=== PATIENT | male | born 1955 | race Caucasian/White ===

== ENCOUNTER 2023-02-15 12:57 | Observation (INO) ==
--- NOTE | 2023-02-15 13:14 | ED Triage Note ---
Date of Service February 15, 2023 Provider in Triage Author: Yana Nguyen History of Present Illness This patient was briefly evaluated while in triage. An abbreviated physical exam was performed. This patient is a 67-year-old Male who presents to the ED for evaluation of fever, rash, swelling to ankles. Recent UTI treated with Bactrim in January. Cleared symptoms but returned on Wednesday. Second round of Bactrim currently with 3 doses. Devleoped Fever/chills, rash on thighs, and lower leg swelling this morning prompting evaluation. Denies chest pain, SOB. Physical Exam Constitutional: alert and oriented x3. no acute distress. HEENT: normocephalic, atraumatic. normal conjunctiva.PERRLA. EOM's grossly intact. Respiratory: lungs are clear to auscultation without wheezes, rhonchi, or rales bilaterally. equal chest rise. normal respiratory effort, no accessory muscle use. Cardiovascular: normal heart sounds without murmur. regular rate and rhythm. GI: abdomen is soft, nontender. No palpable masses. No rebound tenderness or guarding. MSK: moves all 4 extremities spontaneously Psych:appropriate mood and affect. Initial orders for labs and / or imaging were placed and patient was placed in the waiting area until a bed is available. Please see further documentation for the full ED course.
--- NOTE | 2023-02-15 15:34 | XRay Report ---
XR chest 1V not portable HISTORY: fever COMPARISON: Chest 08/03/2013. Chest 06/05/2011. FINDINGS: No pneumothorax. No pleural effusions. No focal lung consolidations to suggest a pneumonia. No evidence for pulmonary edema. The cardiac silhouette is normal in size. Calcified plaque within t he aortic knob. No acute fractures identified. There are degenerative changes noted within the left s [place]. Surgical clips seen within the right neck. Bilateral hilar prominence, unchanged. Stable 6 m m nodular density within the left midlung zone. Therefore, this is likely benign. IMPRESSION: No significant change compared to the prior study. No acute process. ACT 112: Negative or not required by law. Electronically signed by: Jonas Dillon M.D. 02/15/2023 3:33 PM
[2023-02-15 16:17] LABS: Basophils # (auto) 0.03 K/uL (0.00-0.20); Basophils % (auto) 0.2 %; Eosinophils % (auto) 0.7 %; Hematocrit (blood only) 30.4 % (42.0-52.0); Hemoglobin 10.5 g/dl (14.0-18.0); Immature Granulocytes # (auto) 0.06 K/uL (0.01-0.20); Immature Granulocytes % (auto) 0.4 %; Lymphocytes # (auto) 1.44 K/uL (1.20-3.40); Lymphocytes % (auto) 9.9 %; Mean Corpuscular Hgb Conc 34.5 g/dL (32.0-36.0); Mean Corpuscular Volume 92.7 fL (80.0-100.0); Mean Platelet Volume 9.3 fL (9.4-12.4); Monocytes # (auto) 1.04 K/uL (0.11-0.59); Monocytes % (auto) 7.2 %; Neutrophils # (auto) 11.87 K/uL (1.40-6.50); Neutrophils % (auto) 81.6 %; Platelet Count 258 K/uL (130-400); RDW Coefficient of Variation 13.9 % (11.5-14.5); RDW Standard Deviation 47.3 fL (36.4-46.3); Red Blood Count 3.28 M/uL (4.70-6.10); White Blood Count 14.54 K/ul (4.8-10.8)
[2023-02-15 16:23] LABS: Appearance Urine Turbid (Clear); Bacteria Urine Automated Negative (Negative); Bilirubin Urine Negative (Negative); Blood Urine 2+ (Negative); Color Urine Yellow; Epithelial Cell Urine Auto 0-5 /lpf (0-5); Glucose Urine UA Negative (Negative); Ketones Urine Negative (Negative); Leukocyte Esterase Urine 3+ (Negative); Nitrite Urine Negative (Negative); Protein Urine 1+ (Negative); RBC Urine Automated 0-4 /hpf (0-4); Specific Gravity Urine 1.013 (1.000-1.030); Urobilinogen Urine Negative (Negative); WBC Urine Automated >30 /hpf (0-5)
[2023-02-15 16:36] LABS: Albumin Globulin Ratio 1.2 (0.9-2); BUN Creatinine Ratio 15.1 (10-20); Bilirubin,Total 0.4 mg/dl (0.2-1.0); Calcium 8.9 mg/dl (8.6-10.3); Creatinine Clr Calc Pharmacy 76.4 ml/min; Est GFR (Non-African American) 89.7 ml/min; Globulin 3.4 gm/dl (2.5-4.0); Potassium 4.1 mmol/L (3.5-5.1); Total Protein 7.4 gm/dl (6.0-8.3)
[2023-02-15] MEDS ORDERED: SODIUM CHLORIDE 0.9% 500 ML IV ONE (18:26)
[2023-02-15] MEDS ORDERED: ACETAMINOPHEN 1,000 MG/100 ML VIAL IV STA (18:26)
[2023-02-15] MEDS ORDERED: cefTRIAXone SODIUM 2,000 MG/50 ML BAG IV STA (18:26)
--- NOTE | 2023-02-15 18:54 | Emergency Department Note ---
History of Present Illness General Chief complaint: Urinary Symptoms Stated complaint: FEVER, SHAKES, EDEMA TO ANKLES, UNABLE TO VOID,UTI Time Seen by Provider: 02/15/23 18:25 History of Present Illness 67-year-old male who presents to the emergency department accompanied by for evaluation of fever, ankle swelling and rash. Patient states in December he had a carotid endarterectomy. He developed postoperative urinary retention and had a Nails placed for 8 days. This was removed by urology. He states in middle of January he developed urinary tract infection with hematuria, frequency and dysuria. He was placed on a 10-day course of Bactrim which cleared his symptoms. He was seen by his PCP this past Wednesday and urinalysis was performed and negative for infection. Patient states that yesterday however he then developed urinary frequency and burning again. His PCP called him and another prescription of Bactrim and has taken 3 doses so far. Last night he developed fever/chills. He notes getting out of the shower this morning a rash on his bilateral thighs and swelling in his ankles. He denies chest pain, shortness of breath, abdominal pain, flank pain. Denies blood in urine or stool. No melena. Denies history of CHF. The only other change in his medications was a probiotic that he took yesterday. He denies any difficulty breathing or tongue/lip swelling. His rash is nonpainful or itchy. Denies blistering. He denies developing a rash through his first course of Bactrim. No known allergies. Home Medications Medication Instructions Recorded Confirmed Type multivitamin 1 tab PO QAM 12/22/18 02/18/23 History aspirin 81 mg tablet,delayed 81 mg PO DAILY #30 tabs 08/13/22 02/18/23 Rx release (Adult Low Dose Aspirin) atorvastatin 40 mg tablet 40 mg PO DAILY #30 tabs 08/13/22 02/18/23 Rx amlodipine 5 mg-olmesartan 20 mg 1 tab PO DAILY #90 tabs 01/14/23 02/18/23 Rx tablet ascorbic acid (vitamin C) 1,000 mg 1 g PO DAILY 01/14/23 02/18/23 History capsule cholecalciferol (vitamin D3) 25 25 mcg PO DAILY 01/14/23 02/18/23 History mcg (1,000 unit) capsule cefdinir 300 mg capsule 300 mg PO BID 7 days #14 caps 02/16/23 02/18/23 Rx hydroxyzine HCl 25 mg tablet 25 mg PO BID PRN anxiety #20 tabs 02/16/23 02/18/23 Rx tamsulosin 0.4 mg capsule 0.4 mg PO QAM 30 days #30 caps 02/16/23 02/18/23 Rx Allergies Allergy/AdvReac Type Severity Reaction Status Date / Time No Known Allergies Allergy Verified 02/10/23 14:04 Past Med/Surg History Medical History Anxiety Surgical History History of arthroscopy of left knee unknown date Hx of vasectomy unknown date History of right inguinal hernia repair unknown date History of colonoscopy 01/06/2016 and 01/10/2019 History of tooth extraction all teeth removed Family History Unknown COPD (chronic obstructive pulmonary disease) Father Family history of diabetes mellitus Myocardial infarction Other No family history of adverse response to anesthesia Denies family history of Ovarian cancer Prostate cancer Breast cancer Colorectal cancer Social History Smoking Status: Never smoker Second Hand Exposure: Yes (parents smoked); Do You Dip or Chew Tobacco: No; Hx Alcohol Use: No Hx Substance Use: No Preferred Language: Marshallese Communication Ability: Effective Visual Impairment: No Limitations Hearing Ability: Normal Librarian Required: No Beliefs That Will Affect Care: None marital status: Current Living Situation: Spouse current occupational status: retired Feels Safe at Home: Yes Childhood Exposure to Second-Hand Smoke: Yes Dental Care, Regularly: No Physical Activity Frequency: Daily Seatbelt Use: never Sunscreen Use: No Assistive Devices: None Physical Exam Vital Signs Vital Signs - 24 hr 02/15/23 13:09 02/15/23 16:30 02/15/23 16:32 Temperature 37.2 C 37.7 C H Temperature Source Temporal Artery Scan Oral Pulse Rate 95 H Pulse Rate [Finger] 85 Respiratory Rate 18 18 Respiratory Effort / Characteristics Non-Labored Spontaneous Non-Labored Spontaneous Respiratory Depth Normal Normal Respiratory Pattern Regular Blood Pressure 140/75 Blood Pressure [Right Arm] 137/66 Blood Pressure Mean 96 Blood Pressure Mean [Right Arm] 89 Blood Pressure Position Sitting Blood Pressure Position [Right Arm] Sitting Pulse Oximetry 97 99 Oxygen Delivery Method Room Air Room Air Sepsis Recent Fever Within 48 Hours No Sepsis New/Unexplained Change in Mental Status No Sepsis Action Taken by Nursing No Action Required 02/15/23 20:34 Temperature Temperature Source Pulse Rate Pulse Rate [Finger] 82 Respiratory Rate Respiratory Effort / Characteristics Respiratory Depth Respiratory Pattern Blood Pressure Blood Pressure [Right Arm] 144/66 H Blood Pressure Mean Blood Pressure Mean [Right Arm] 92 Blood Pressure Position Blood Pressure Position [Right Arm] Sitting Pulse Oximetry 97 Oxygen Delivery Method Room Air Sepsis Recent Fever Within 48 Hours Sepsis New/Unexplained Change in Mental Status Sepsis Action Taken by Nursing Constitutional: alert and oriented x3. no acute distress. Nontoxic HEENT: normocephalic, atraumatic. normal conjunctiva.PERRLA. EOM's grossly intact. TMs pearly [place] without effusion. Pharynx pink without exudate. Tonsils nonenlarged. Mucus membranes moist, no blisters or lesions in the mouth. No angioedema. Neck: neck is supple, nontender. Respiratory: lungs are clear to auscultation without wheezes, rhonchi, or rales bilaterally. equal chest rise. normal respiratory effort, no accessory muscle use. Cardiovascular: normal heart sounds without murmur. regular rate and rhythm. GI: abdomen is soft, nontender. No palpable masses. No rebound tenderness or guarding. No CVA tenderness. MSK: Moves all 4 extremities spontaneously. Skin: Erythematous dry scaly rash to the bilateral anterior thighs. No torso or face involvement. No mucosal involvement. No blistering or skin sloughing. No evidence of infection Peripheral vascular: Lower extremities warm and well perfused with palpable pedal pulses. Brisk capillary refill of all digits. Sensation grossly intact. +1 peripheral edema, nonpitting Neuro: without focal neuro deficits. CNII-XII intact. Speech clear, tongue midline, without facial droop. Strength equal throughout all for extremities. Psych:appropriate mood and affect. Course Administered Medications Discontinued Medications Amlodipine Besylate (Amlodipine Besylate 5 Mg Tab) 5 mg PO DAILY REEMA Stop: 03/18/23 08:59 Last Admin: 02/16/23 09:18 Dose: Not Given Documented By: REJI Aspirin (Aspirin 81 Mg Ectab) 81 mg PO DAILY REEMA Stop: 03/18/23 08:59 Last Admin: 02/16/23 09:17 Dose: 81 mg Documented By: REJI Atorvastatin Calcium (Atorvastatin 40 Mg Tab) 40 mg PO DAILY REEMA Stop: 03/18/23 08:59 Last Admin: 02/16/23 09:17 Dose: 40 mg Documented By: REJI Hydroxyzine HCl (Hydroxyzine Hcl 25 Mg Tab) 25 mg PO TID PRN PRN Reason: anxiety Stop: 03/17/23 22:40 Last Admin: 02/16/23 18:06 Dose: 25 mg Documented By: Admin: 02/15/23 23:26 Dose: 25 mg Documented By: HILARY Sodium Chloride (Nss) 500 mls @ 999 mls/hr IV .Q31M ONE Stop: 02/15/23 18:56 Last Infusion: 02/15/23 20:17 Dose: Infused Documented By: Admin: 02/15/23 18:48 Dose: 999 mls/hr Documented By: ROSENDO Ceftriaxone Sodium (Rocephin) 2,000 mg in 50 mls @ 100 mls/hr IV NOW STA Stop: 02/15/23 18:55 Last Infusion: 02/15/23 20:17 Dose: Infused Documented By: Admin: 02/15/23 18:48 Dose: 100 mls/hr Documented By: ROSENDO Acetaminophen (Ofirmev) 1,000 mg in 100 mls @ 400 mls/hr IV NOW STA Stop: 02/15/23 18:40 Last Infusion: 02/15/23 20:17 Dose: Infused Documented By: Admin: 02/15/23 18:48 Dose: 400 mls/hr Documented By: ROSENDO Ceftriaxone Sodium 1,000 mg/ (Dextrose) 50 mls @ 100 mls/hr IV Q24H [facility]; Protocol Stop: 02/21/23 17:59 Last Infusion: 02/16/23 18:59 Dose: Infused Documented By: Admin: 02/16/23 18:06 Dose: 100 mls/hr Documented By: REJI Lactated Ringer's (Lr) 1,000 mls @ 80 mls/hr IV .[id number] REEMA Stop: 02/16/23 04:55 Last Infusion: 02/16/23 05:26 Dose: Infused Documented By: Admin: 02/15/23 23:28 Dose: 80 mls/hr Documented By: HILARY Ioversol (Optiray 320 500ml) 89 ml IV ONCE ONE Stop: 02/15/23 19:30 Last Admin: 02/15/23 19:29 Dose: 89 ml Documented By: ARON Losartan Potassium (Losartan Potassium 50 Mg Tab) 50 mg PO DAILY [facility] Stop: 03/18/23 08:59 Last Admin: 02/16/23 09:17 Dose: Not Given Documented By: REJI Tamsulosin HCl (Tamsulosin Hcl 0.4 Mg Cap) 0.4 mg PO NOW ONE Stop: 02/15/23 22:02 Last Admin: 02/15/23 23:26 Dose: 0.4 mg Documented By: HILARY Tamsulosin HCl (Tamsulosin Hcl 0.4 Mg Cap) 0.4 mg PO QAM [facility] Stop: 03/18/23 08:59 Last Admin: 02/16/23 09:17 Dose: 0.4 mg Documented By: REJI Medical Decision Making Differential Diagnosis UTI, pyelonephritis, prostatitis, renal failure, CHF, pneumonia as well as other pathologies Laboratory Data Attestation: I reviewed the patient's lab results. 02/16/23 05:49 02/16/23 05:49 Lab Results 02/15/23 02/15/23 02/15/23 Range/Units 15:54 15:58 21:13 WBC 14.54 H (4.8-10.8) K/ul RBC 3.28 L (4.70-6.10) M/uL Hgb 10.5 L (14.0-18.0) g/dl Hct 30.4 L (42.0-52.0) % MCV 92.7 (80.0-100.0) fL MCH 32.0 (25.0-34.0) pg MCHC 34.5 (32.0-36.0) g/dL RDW Std Deviation 47.3 H (36.4-46.3) fL RDW Coeff of [place] 13.9 (11.5-14.5) % Plt Count 258 (130-400) K/uL MPV 9.3 L (9.4-12.4) fL Immature Gran % (Auto) 0.4 % Neut % (Auto) 81.6 % Lymph % (Auto) 9.9 % [place] % (Auto) 7.2 % Eos % (Auto) 0.7 % Baso % (Auto) 0.2 % Neut # (Auto) 11.87 H (1.40-6.50) K/uL Lymph # (Auto) 1.44 (1.20-3.40) K/uL [place] # (Auto) 1.04 H (0.11-0.59) K/uL Eos # (Auto) 0.10 (0.00-0.50) K/uL Baso # (Auto) 0.03 (0.00-0.20) K/uL Immature Gran # (Auto) 0.06 (0.01-0.20) K/uL Sodium 133 L (136-145) mmol/L Potassium 4.1 (3.5-5.1) mmol/L Chloride 101 (98-107) mmol/L Carbon Dioxide 24 (21-32) mmol/L Anion Gap 8 (3-11) BUN 13 (6-23) mg/dl Creatinine 0.86 (0.6-1.4) mg/dl Est Cr Clr Drug Dosing 76.4 ml/min Est GFR ( Amer) 104.0 ml/min Est GFR (Non-Af Amer) 89.7 ml/min BUN/Creatinine Ratio 15.1 (10-20) Glucose 118 H (70-99(Fasting)) mg/dl Lactate 1.2 (0.4-2.0) mmol/L Calcium 8.9 (8.6-10.3) mg/dl Total Bilirubin 0.4 (0.2-1.0) mg/dl AST 19 (13-39) U/L ALT 23 (7-52) U/L Alkaline Phosphatase 50 (34-104) U/L Total Protein 7.4 (6.0-8.3) gm/dl Albumin 4.0 (3.4-5.0) gm/dl Globulin 3.4 (2.5-4.0) gm/dl Albumin/Globulin Ratio 1.2 (0.9-2) Lipase 19 (11-82) U/L Urine Color Yellow Urine Appearance Turbid A (Clear) Urine pH 6.0 (4.5-7.5) Ur Specific [place] 1.013 (1.000-1.030) Urine Protein 1+ H (Negative) Urine Glucose (UA) Negative (Negative) Urine Ketones Negative (Negative) Urine Blood 2+ H (Negative) Urine Nitrite Negative (Negative) Urine Bilirubin Negative (Negative) Urine Urobilinogen Negative (Negative) Ur Leukocyte Esterase 3+ H (Negative) Urine WBC (Auto) >30 H (0-5) /hpf Urine RBC (Auto) 0-4 (0-4) /hpf U Hyaline Cast (Auto) 1-5 (0-5) /lpf U Epithel Cells (Auto) 0-5 (0-5) /lpf Urine Bacteria (Auto) Negative (Negative) Imaging Data Radiologist's Impression: Chest X-Ray 02/15/23 13:14 XR chest 1V not portable HISTORY: fever COMPARISON: Chest 08/03/2013. Chest 06/05/2011. FINDINGS: No pneumothorax. No pleural effusions. No focal lung consolidations to suggest a pneumonia. No evidence for pulmonary edema. The cardiac silhouette is normal in size. Calcified plaque within the aortic knob. No acute fractures identified. There are degenerative changes noted within the left s[place]. Surgical clips seen within the right neck. Bilateral hilar prominence, unchanged. Stable 6 mm nodular density within the left midlung zone. Therefore, this is likely benign. IMPRESSION: No significant change compared to the prior study. No acute process. ACT 112: Negative or not required by law. Electronically signed by: Jonas Dillon M.D. 02/15/2023 3:33 PM Abdomen/Pelvis CT 02/15/23 18:49 Exam(s): CT ABDOMEN + PELVIS With Contrast IV Amt: 89 ML OPTIRAY 320 EXAM: CT Abdomen and Pelvis With Intravenous Contrast CLINICAL HISTORY: Reason for exam: recurrent UTI, fever. TECHNIQUE: Axial computed tomography images of the abdomen and pelvis with intravenous contrast. CTDI is 10.82 mGy and DLP is 490.02 mGy-cm. Automated exposure control was utilized for the study. A dose lowering technique was utilized adhering to the principles of ALARA. CONTRAST: Patient received 89 ML OPTIRAY 320 of IV contrast COMPARISON: No relevant prior studies available. FINDINGS: Lung bases: Unremarkable. No mass. No consolidation. ABDOMEN: Liver: Hepatic steatosis. Gallbladder and bile ducts: Unremarkable. No calcified stones. No ductal dilation. Pancreas: Unremarkable. No mass. No ductal dilation. Spleen: Unremarkable. No splenomegaly. Adrenals: Unremarkable. No mass. Kidneys and ureters: Unremarkable. No hydronephrosis or delayed nephrogram. Stomach and bowel: Diverticulosis, without acute diverticulitis. No small bowel obstruction. No free air. PELVIS: Appendix: No findings to suggest acute appendicitis. Bladder: Wall thickening of the urinary bladder measures 7 mm. Correlate for UTI or bladder outlet obstruction. RIGHT bladder diverticulum measures 4.6 x 3.3 cm. Reproductive: Unremarkable as visualized. ABDOMEN and PELVIS: Intraperitoneal space: See above. Bones/joints: Degenerative changes of the spine. No acute fracture. No dislocation. Soft tissues: Unremarkable. Vasculature: Atherosclerotic changes of the aorta. No abdominal aortic aneurysm. Lymph nodes: Unremarkable. No enlarged lymph nodes. IMPRESSION: 1. No hydronephrosis or delayed nephrogram. 2. Wall thickening of the urinary bladder measures 7 mm. Correlate for UTI or bladder outlet obstruction. RIGHT bladder diverticulum measures 4. 6 x 3.3 cm. Urinalysis recommended. 3. Diverticulosis, without acute diverticulitis. No small bowel obstruction. No free air. Electronically signed by: Javi Conde MD 02/15/23 19:57 PM MDM Narrative 67-year-old male who presents to the emergency department for evaluation of fever and urinary symptoms. Review of pertinent visits and past medical history performed. Vital signs in ED demonstrate low-grade fever at 37.7C otherwise within normal limits. Patient was seen and evaluated as above. IV access was established and labs and imaging were obtained. CBC demonstrates leukocytosis of 14 with left shift. Hemoglobin 10.5 which is dropped from 12 on 01/28. Platelets within normal limits. CMP without significant electrolyte abnormalities. Renal function within normal limits. LFTs and lipase unremarkable. Lactate 1.2. Urinalysis demonstrates +2 blood, +3 leukocyte esterase as well as greater than 30 epithelial cells. Negative for bacteria. No nitrates. Urine culture sent. CXR unremarkable. Patient was recently restarted on Bactrim yesterday and has had 3 doses thus far. Given persistent fever and leukocytosis, CT abdomen/pelvis was obtained to evaluate further. This was personally reviewed as well as interpreted by radiology as above and negative for pyelonephritis or hydronephrosis. Urinary bladder wall thickening demonstrated measuring 7 mm. Bladder does appear to be full and there is concern for retention. Bedside bladder scan was performed and postvoid residual demonstrates 750 mL. On exam, patient is well-appearing in no acute distress. He is mildly anxious. Abdominal exam is benign without focal tenderness. No peritoneal signs. No CVA tenderness. Patient was medicated with IV Tylenol for fever and 500 mL of fluids. Previous urine culture from 01/27 reviewed and grew Enterobacter which was pansensitive. He was given a dose of empiric 2 g of Rocephin in the emergency department to cover for UTI. Patient was reassessed on multiple occasions throughout ED stay and remained stable without new concerns. They were updated on all exam findings and test results. Given recurrent UTI and urinary retention, I do feel admission to the hospital for IV antibiotics and urology evaluation is warranted. I did discuss case with on-call urology, Sam Galindo who recommended placing Nails catheter for urinary retention and will see patient in consultation. Patient is very anxious and would like to defer Nails catheter at this time as he is voiding spontaneously. Case was discussed with hospitalist and was graciously accepted to their service for further management. He was admitted in stable condition. Case was discussed with ED attending, Dr. Mccarthy who agrees with workup and treatment plan Impression & Plan Urinary retention, Urinary tract infection Discharge Plan Visit Data Chief Complaint: Urinary Symptoms Stated Complaint: FEVER, SHAKES, EDEMA TO ANKLES, UNABLE TO VOID,UTI ED Provider: Albert Mccarthy ED Midlevel Provider: Yana Nguyen Discharge Problem: Urinary retention, Urinary tract infection Patient Disposition: Admitted As Inpatient Discharge Instructions Interventions: ED Discharge Assessment Last Done: 02/15/23 23:40 Addendum February 19, 2023 00:18 I was consulted by the Advanced Practice Provider and was substantively involved in the patient's visit.This includes aspects of the HPI, MDM, diagnostic interpretations, and disposition/plan. I discussed the case with the LAYLA and agree with the findings and plan as documented in LAYLA Patrick's note.
[2023-02-15] MEDS ORDERED: OPTIRAY 320 500ml IV ONE (19:29)
--- NOTE | 2023-02-15 19:59 | CT Scan Report ---
Exam(s): CT ABDOMEN + PELVIS With Contrast IV Amt: 89 ML OPTIRAY 320 EXAM: CT Abdomen and Pelvis With Intravenous Contrast CLINICAL HISTORY: Reason for exam: recurrent UTI, fever. TECHNIQUE: Axial computed tomography images of the abdomen and pelvis with intravenous contrast. CTDI is 10.82 mGy and DLP is 490.02 mGy-cm. Automated exposure control was utilized for the study. A dose lowering technique was utilized adhering to the principles of ALARA. CONTRAST: Patient received 89 ML OPTIRAY 320 of IV contrast COMPARISON: No relevant prior studies available. FINDINGS: Lung bases: Unremarkable. No mass. No consolidation. ABDOMEN: Liver: Hepatic steatosis. Gallbladder and bile ducts: Unremarkable. No calcified stones. No ductal dilation. Pancreas: Unremarkable. No mass. No ductal dilation. Spleen: Unremarkable. No splenomegaly. Adrenals: Unremarkable. No mass. Kidneys and ureters: Unremarkable. No hydronephrosis or delayed nephrogram. Stomach and bowel: Diverticulosis, without acute diverticulitis. No small bowel obstruction. No free air. PELVIS: Appendix: No findings to suggest acute appendicitis. Bladder: Wall thickening of the urinary bladder measures 7 mm. Correlate for UTI or bladder outlet obstruction. RIGHT bladder diverticulum measures 4.6 x 3.3 cm. Reproductive: Unremarkable as visualized. ABDOMEN and PELVIS: Intraperitoneal space: See above. Bones/joints: Degenerative changes of the spine. No acute fracture. No dislocation. Soft tissues: Unremarkable. Vasculature: Atherosclerotic changes of the aorta. No abdominal aortic aneurysm. Lymph nodes: Unremarkable. No enlarged lymph nodes. IMPRESSION: 1. No hydronephrosis or delayed nephrogram. 2. Wall thickening of the urinary bladder measures 7 mm. Correlate for UTI or bladder outlet obstruction. RIGHT bladder diverticulum measures 4. 6 x 3.3 cm. Urinalysis recommended. 3. Diverticulosis, without acute diverticulitis. No small bowel obstruction. No free air. Electronically signed by: Javi Conde MD 02/15/23 19:57 PM
--- NOTE | 2023-02-15 21:32 | History & Physical Report ---
Date of Service February 15, 2023 Assessment & Plan (1) Urinary tract infection: Plan: -Pt presenting with multiple urinary symptoms and UA on admission positive for LE, WBCs -Not meeting SIRS criteria on admission -Continue ceftriaxone -UCx, BCx pending -Last UCx 01/2023 growing pansensitive Enterobacter cloaca -While this is more likely UTI rather than prostatitis, given pt's recent progressive urinary frequency we will check PSA with AM labs as well -Monitor CBC (2) Urinary retention: Plan: -PVR of 750ccs in ER -Urology consulted -Case discussed with urology in ER. Deferring catheter placement for now as pt can void spontaneously -With clinical deterioration including fever, hematuria or inability to void- will need catheter placement -Flomax initiated (3) Anemia: Plan: -Hgb 10.5 on admission -UA with microscopic hematuria, no gross hematuria per pt -Possibly due to hematuria although pt has also had some mild anemia over past few months which is being evaluated by PCP -Iron studies wnl 01/2023 -Monitor CBC (4) Hyponatremia: Plan: -Na 133 on admission -Mild hyponatremia possibly due to reduced solute intake -Fluid repletion ongoing -Monitor BMP (5) Rash: Plan: -Less likely Bactrim reaction given lack of rash with initial Bactrim course and limited to only thighs -More likely xerotic rash -Will monitor for now (6) Carotid stenosis: Plan: -S/p CEA at [facility] [place] [place] in 12/2022 -Currently stable, no acute issues -Continue atorvastatin, aspirin (7) PAD (peripheral artery disease): Plan: -Continue atorvastatin, aspirin (8) Hypertension: Plan: -BP stable -Continue amlodipine-olmesartan (at half-dose, as pt has been doing this at home recently) (9) Anxiety: Plan: -Hydroxyzine PRN Plan FENGI: Regular Code status: Full DVT prophylaxis: SCDs, deferring chemoprophylaxis due to hematuria Isolation: None Unit: Medical/surgical Disposition planning: Likely home History of Present Illness Chief Complaint: Urinary frequency Primary Care Provider: Keon Whitley MD Pt is 67 yo M with PMH HTN, PAD, carotid stenosis s/p recent CEA 12/2022 presenting with urinary frequency. Pt hospitalized at [facility] [place] [place] in 12/2022 for CEA and developed postoperative urinary retention requiring Nails catheter for 8 days. Pt developed UTI in mid-January which resolved with Bactrim course, seen by PCP on 02/12 with repeat clear UA in office. On 02/14 pt's symptoms of urinary frequency, dysuria and infrequent hematuria returned- called PCP and Bactrim course prescribed again for which the patient has completed 3/20 doses. That evening, pt began to have fever with Tmax 100.5 F and chills. His noticed his ankles were swollen this morning along with a rash on b/l thighs so he was brought to ER for evaluation. Pt arrived to ER hemodynamically stable. Initial evaluation significant for WBC 14.5, Hgb 10.5, Na 133, UA with LE+, WBCs but no bacteria. CTAP demonstrating bladder wall thickening of 7mm. PVR of 750ccs. ER interventions include 500cc NSS bolus, ceftriaxone 2g, Tylenol 1000 mg IV. At present, pt reports feeling well and denies acute complaints. He states he's been able to void spontaneously and wishes not to have catheter placed again. Allergies Allergy/AdvReac Type Severity Reaction Status Date / Time No Known Allergies Allergy Verified 02/10/23 14:04 Home Medications Medication Instructions Recorded Confirmed Type multivitamin 1 tab PO QAM 12/22/18 02/10/23 History aspirin 81 mg tablet,delayed 81 mg PO DAILY #30 tabs 08/13/22 02/10/23 Rx release (Adult Low Dose Aspirin) atorvastatin 40 mg tablet 40 mg PO DAILY #30 tabs 08/13/22 02/10/23 Rx amlodipine 5 mg-olmesartan 20 mg 1 tab PO DAILY #90 tabs 01/14/23 02/10/23 Rx tablet ascorbic acid (vitamin C) 1,000 mg 1 g PO DAILY 01/14/23 02/10/23 History capsule cholecalciferol (vitamin D3) 25 25 mcg PO DAILY 01/14/23 02/10/23 History mcg (1,000 unit) capsule cefdinir 300 mg capsule 300 mg PO BID 7 days #14 caps 02/16/23 Rx hydroxyzine HCl 25 mg tablet 25 mg PO BID PRN anxiety #20 tabs 02/16/23 Rx tamsulosin 0.4 mg capsule 0.4 mg PO QAM 30 days #30 caps 02/16/23 Rx Past Med/Surg History Medical History Anxiety Surgical History History of arthroscopy of left knee unknown date Hx of vasectomy unknown date History of right inguinal hernia repair unknown date History of colonoscopy 01/06/2016 and 01/10/2019 History of tooth extraction all teeth removed Family History Unknown COPD (chronic obstructive pulmonary disease) Father Family history of diabetes mellitus Myocardial infarction Other No family history of adverse response to anesthesia Denies family history of Ovarian cancer Prostate cancer Breast cancer Colorectal cancer Social History Smoking Status: Never smoker Second Hand Exposure: Yes (parents smoked); Do You Dip or Chew Tobacco: No; Hx Alcohol Use: No Hx Substance Use: No Preferred Language: Turkmen Communication Ability: Effective Visual Impairment: No Limitations Hearing Ability: Normal Medical Transport Specialist Required: No Beliefs That Will Affect Care: None marital status: Current Living Situation: Spouse current occupational status: retired Feels Safe at Home: Yes Childhood Exposure to Second-Hand Smoke: Yes Dental Care, Regularly: No Physical Activity Frequency: Daily Seatbelt Use: never Sunscreen Use: No Assistive Devices: None Review of Systems Review of Systems: Per HPI/Subjective Physical Exam Physical Exam: General: well-appearing, no acute distress HEENT: PERRL, EOMI, conjunctivae clear without injection, anicteric sclerae, moist mucous membranes, clear oropharynx without exudate or erythema Neck: supple, trachea midline, no thyromegaly, no JVD, no cervical lymphadenopathy CV: RRR, normal S1 and S2, no murmurs Resp: CTAB, no increased work of breathing, no crackles or wheezes Abd: Soft, nontender, mild firmness of abdomen w/ distension, no CVA tenderness, no guarding or rebound, no hepatosplenomegaly MSK: Normal bulk of all four extremities Neuro: AOx3, no focal motor or sensory deficits Skin: faintly erythematous + scaly rash on b/l thighs, nontender, no warmth to touch Ext: no LE peripheral edema or erythema, capillary refill <2s in all four extremities, 2+ LE peripheral pulses b/l Results & Data Results & Data Vital Signs (Past 12 Hours) Vital Signs Temp Pulse Pulse Resp BP BP Pulse Ox 02/15/23 20:34 82 144/66 H 97 02/15/23 16:32 37.7 C H 02/15/23 16:30 85 18 137/66 99 02/15/23 13:09 37.2 C 95 H 18 140/75 97 O2 Del Method 02/15/23 20:34 Room Air 02/15/23 16:32 02/15/23 16:30 Room Air 02/15/23 13:09 Room Air Code Status & VTE Plan VTE Prophylaxis Plan VTE Prophylaxis will be ordered: Yes Supervising Physician Co-Signing Physician Notes Attending addendum: I have physically seen this patient, have supervised the medical residents activities, and agree with the H&P unless as otherwise noted. Assessment and Plan: Urinary tract infection/urinary retention/abnormal CT scan/the bladder diverticulum- Follow urine culture and sensitivity Follow blood culture and sensitivity Empiric treatment with IV antibiotics to cover pansensitive Enterobacter cloacae from urinary tract infection of 02/04 IV fluids as noted Patient was noted to have a PVR of 750 cc in ED Catheter placed while in the ED Tamsulosin 0.4 mg at bedtime started Hypertension- Continue amlodipine/olmesartan with hold parameters Resident Activity Tracking Resident Involvement: Resident Care Provided Care Provided: Adult Hospital Medicine
[2023-02-15] MEDS ORDERED: TAMSULOSIN HCL 0.4 MG CAP PO ONE (22:01)
--- NOTE | 2023-02-15 22:21 | Urology Consultation ---
Date of Consultation February 15, 2023 Assessment & Plan (1) Urinary tract infection: I discussed with the treating clinician emergency department the patient is being admitted on the hospitalist service. I also discussed with the hospitalist service and recommend the following for urologic perspective: The patient is very concerned and anxious about having a Nails catheter replaced as he feels that this is contributed to his recent urinary tract infections. Patient prefers to not have a Nails catheter placed. Patient notes that Flomax did help his urinary retention in the past but has not taken this as an outpatient so this medication will be resumed I discussed with the patient that we could attempt to treat him without a Nails catheter. I did discuss with the patient that he develops any suprapubic discomfort, hematuria, flank pain, or worsening urinary retention as evidenced by higher postvoid residuals the use of a Nails catheter will need to be reconsidered and he is in agreement with this Patient has been started on antibiotics in form of Rocephin which should continue. Appropriate cultures including blood and urine have been sent and antibiotics to be tailored based on these results Would recommend following serial labs I discussed the above plan with my attending physician Dr. Kilpatrick who is in agreement. History of Present Illness Reason for Consultation: Urinary retention History of Present Illness This is a 67-year-old male who underwent a carotid endarterectomy at [facility] in December 2022. During the patient's postoperative course he developed urinary retention which required Nails catheter for approximately 8 days. Patient developed urinary tract infection in January of this year which appeared to resolve with a course of Bactrim. He had a repeat urinalysis performed on 02/12/2023 which was negative for urinary tract infection. Patient subsequently developed symptoms of dysuria and urinary frequency on 02/14/2023. During this time he also reports some intermittent hematuria and his primary care physician placed him on an additional course of Bactrim. On the evening of 02/14/2023 the patient did report some low-grade fevers 100.5. He was therefore brought into the emergency department by his for further patient. I did discuss with the patient his urinary habits. He notes that he is having urinary frequency having to urinate every 1-2 hours. He feels as though his urine stream is strong but he cannot tell if he empties his bladder the entire way. He denies any urinary hesitancy. Again he does report some intermittent dysuria. Since arrival to hospital patient has had labs and imaging which independent reviewed. Patient had a chest x-ray that showed no evidence of pneumonia. A CT scan of the abdomen pelvis showed the patient had no hydronephrosis. There is wall thickening of the urinary bladder measuring approximate 7 mm. Labs include a CBC her white blood cell count was elevated at 14.5. Hemoglobin and hematocrit were 10.5 and 30.4. Platelet count was normal. Chemistry profile showed sodium was 133 with a normal potassium. His BUN and creatinine were both within the normal range and not elevated. Lactic acid level was not elevated. Urinalysis did show turbid urine which was negative for nitrites. There is 3+ leukocyte Estrace and greater than 30 white blood cells per high-power field. There is no bacteria noted on the study. Available culture data was reviewed and the patient did have a urine culture on 01/27/2023. This culture did grow Enterobacter which was pansensitive. Emergency department the patient was able to void spontaneously but postvoid residuals via bladder scan did show approximately 750 cc of retained urine. Of note, the patient denied any suprapubic discomfort or flank discomfort. Patient further added that when he had urinary retention following his carotid endarterectomy he was placed on Flomax. He says that he said this seems to have helped his urinary symptoms but he is not taking this as an outpatient currently. At the time of my interview he was resting comfortably at the bedside he was in no distress. Allergies Allergy/AdvReac Type Severity Reaction Status Date / Time No Known Allergies Allergy Verified 02/10/23 14:04 Home Medications Medication Instructions Recorded Confirmed Type multivitamin 1 tab PO QAM 12/22/18 02/10/23 History aspirin 81 mg tablet,delayed 81 mg PO DAILY #30 tabs 08/13/22 02/10/23 Rx release (Adult Low Dose Aspirin) atorvastatin 40 mg tablet 40 mg PO DAILY #30 tabs 08/13/22 02/10/23 Rx amlodipine 5 mg-olmesartan 20 mg 1 tab PO DAILY #90 tabs 01/14/23 02/10/23 Rx tablet ascorbic acid (vitamin C) 1,000 mg 1 g PO DAILY 01/14/23 02/10/23 History capsule cholecalciferol (vitamin D3) 25 25 mcg PO DAILY 01/14/23 02/10/23 History mcg (1,000 unit) capsule sulfamethoxazole 800 1 tab PO BID 14 days #28 tabs 02/14/23 Rx mg-trimethoprim 160 mg tablet (Bactrim DS) Patient History Medical History Anxiety Surgical History History of arthroscopy of left knee unknown date Hx of vasectomy unknown date History of right inguinal hernia repair unknown date History of colonoscopy 01/06/2016 and 01/10/2019 History of tooth extraction all teeth removed Family History Unknown COPD (chronic obstructive pulmonary disease) Father Family history of diabetes mellitus Myocardial infarction Other No family history of adverse response to anesthesia Denies family history of Ovarian cancer Prostate cancer Breast cancer Colorectal cancer Social History Smoking Status: Former smoker Second Hand Exposure: Yes (parents smoked); Do You Dip or Chew Tobacco: No; Hx Alcohol Use: Yes Alcohol type: beer Alcohol Intake Frequency Comment: Socially Hx Substance Use: No Preferred Language: Telugu Communication Ability: Effective Visual Impairment: No Limitations Hearing Ability: Normal Er Tech Required: No Beliefs That Will Affect Care: None marital status: Current Living Situation: Spouse current occupational status: retired Feels Safe at Home: Yes Childhood Exposure to Second-Hand Smoke: Yes Dental Care, Regularly: No Physical Activity Frequency: Daily Seatbelt Use: never Sunscreen Use: No Assistive Devices: Denture - Upper and Denture - Lower Review of Systems Constitutional: + fever; no chills Ear, Nose, Mouth, Throat: no ear pain Respiratory: no cough and no dyspnea Cardiovascular: no chest pain Gastrointestinal: no abdominal pain Genitourinary: + as per Subjective / HPI Musculoskeletal: no back pain Neurologic: no localized weakness Physical Exam Constitutional: WD/WN, vitals as above Eyes: no conjunctival abnormality ENMT: Ears: no hearing impairment and no external ear abnormality Mouth: no oropharynx abnormality Neck: trachea midline Respiratory: normal respiratory effort; no respiratory distress and no labored breathing Cardiovascular: Rate/Rhythm: regular rate and regular rhythm Gastrointestinal (Abdomen): Abdomen is soft and nondistended. It is not rigid. It is nontender to palpation specifically no discomfort in the suprapubic area with palpation. There is no rebound tenderness or guarding. Musculoskeletal: No calf tenderness Neurologic: moves all extremities Psychiatric: Orientation: alert and oriented x 3 Affect: + anxious affect Genitourinary: No CVA tenderness to percussion bilaterally Results & Data Vital Signs (Past 12 Hours) Vital Signs Temp Pulse Pulse Resp BP BP Pulse Ox 02/15/23 20:34 82 144/66 H 97 02/15/23 16:32 37.7 C H 02/15/23 16:30 85 18 137/66 99 02/15/23 13:09 37.2 C 95 H 18 140/75 97 O2 Del Method 02/15/23 20:34 Room Air 02/15/23 16:32 02/15/23 16:30 Room Air 02/15/23 13:09 Room Air PG Care Time/CCT Total # of Minutes Spent Total Time Spent with Patient: Total time spent is greater than 50% in coordination of care (as documented) at patient's floor/unit and/or counseling patient: Coding Level of Care Code 18660 INT INP/OBS CARE 3/75MIN Diagnoses Urinary tract infection N39.0
[2023-02-15] MEDS ORDERED: ONDANSETRON INJ 2 MG/ML 2 ML VIAL IV PRN (22:41)
[2023-02-15] MEDS ORDERED: LACTATED RINGER'S 1,000 ML IV SCH (22:41)
[2023-02-15] MEDS ORDERED: ACETAMINOPHEN 325 MG TAB PO PRN (22:41)
[2023-02-15] MEDS: hydrOXYzine HCl 25 MG TAB PO PRN (23:26)
[2023-02-16 06:35] LABS: Hematocrit (blood only) 30.7 % (42.0-52.0); Hemoglobin 10.1 g/dl (14.0-18.0); Mean Corpuscular Hemoglobin 31.3 pg (25.0-34.0); Mean Corpuscular Hgb Conc 32.9 g/dL (32.0-36.0); Mean Platelet Volume 9.4 fL (9.4-12.4); Platelet Count 232 K/uL (130-400); RDW Coefficient of Variation 14.1 % (11.5-14.5); RDW Standard Deviation 49.7 fL (36.4-46.3); Red Blood Count 3.23 M/uL (4.70-6.10); White Blood Count 9.16 K/ul (4.8-10.8)
[2023-02-16 06:54] LABS: BUN Creatinine Ratio 14.3 (10-20); Calcium 8.9 mg/dl (8.6-10.3); Creatinine Clr Calc Pharmacy 94.1 ml/min; Est GFR (African American) 113.2 ml/min; Est GFR (Non-African American) 97.7 ml/min; Potassium 3.9 mmol/L (3.5-5.1)
[2023-02-16] MEDS ORDERED: ATORVASTATIN 40 MG TAB PO SCH (09:00)
[2023-02-16] MEDS ORDERED: ASPIRIN 81 MG ECTAB PO SCH (09:00)
[2023-02-16] MEDS ORDERED: amLODIPine BESYLATE 5 MG TAB PO SCH (09:00)
[2023-02-16] MEDS ORDERED: LOSARTAN POTASSIUM 50 MG TAB PO SCH (09:00)
[2023-02-16] MEDS ORDERED: TAMSULOSIN HCL 0.4 MG CAP PO SCH (09:00)
--- NOTE | 2023-02-16 10:47 | Urology Progress Note ---
Date of Service February 16, 2023 Assessment & Plan (1) Urinary retention: (2) Urinary tract infection: (3) Urinary frequency: Plan Follow-up of urinary retention, UTI Patient afebrile and hemodynamically stable Labs reviewednormal creatinine, no leukocytosis, PSA 1.746 Urine and blood cultures are pending Continue broad-spectrum antibiotics and narrow per sensitivity data when available PVR [address] imaging independently reviewed and discussed with patient and wifereviewd images with them at bedside Discussed bladder wall thickening and bladder diverticulum suggestive of chronic bladder outlet obstruction Recommend placement of Nails catheter for maximum drainage and treatment of UTI--keep until f/u with urology After discussion, he is agreeable to catheter placement Continue antibiotics and supportive care Continue Flomax We discussed outpatient follow-up for cystoscopy, discuss possible bladder outlet procedures will sign off, please contact our service with any additional questions/concerns Admission and Anticipated Discharge Date Admission Date: February 15, 2023 Subjective Patient seen and examined, chart reviewed present at bedside Patient subjectively doing well Denies suprapubic, abdominal or flank discomfort Reports he is voiding better this am PVR was 403 mL Denies nausea, vomiting, fever or chills Notes significant urinary frequency at baseline Review of Systems Constitutional: as per Subjective / HPI Gastrointestinal: as per Subjective / HPI Genitourinary: + as per Subjective / HPI Physical Exam Constitutional: + thin and comfortable; no acute distres s Respiratory: normal respiratory effort; no respiratory distress and no labored breathing Cardiovascular: Extremities: no pedal edema Gastrointestinal (Abdomen): Inspection/Auscultation: abdomen normal to inspection; abdomen not distended Musculoskeletal: Head/Neck/Chest: normocephalic Neurologic: moves all extremities and awake Psychiatric: Orientation: alert and oriented x 3 Results & Data Vital Signs (Past 12 Hours) Vital Signs Temp Pulse Resp BP Pulse Ox O2 Del Method 02/16/23 07:07 36.6 C 88 18 111/70 97 Room Air 02/16/23 00:01 36.7 C 81 20 136/65 98 Room Air PG Care Time/CCT Total # of Minutes Spent Total Time Spent with Patient: Total time spent is greater than 50% in coordination of care (as documented) at patient's floor/unit and/or counseling patient: Coding Level of Care Code 52911 SUB INP/OBS CARE 2/35MIN Diagnoses Urinary retention R33.9 Urinary tract infection N39.0 Urinary frequency R35.0
--- NOTE | 2023-02-16 11:01 | Hospitalist Progress Note ---
Date of Service February 16, 2023 Assessment & Plan (1) Urinary tract infection: Plan: -Pt presenting with multiple urinary symptoms and UA on admission positive for LE, WBCs -Not meeting SIRS criteria on admission -Last UCx 01/2023 growing pansensitive Enterobacter cloaca; UCx, BCx pending -While this is more likely UTI rather than prostatitis, given pt's recent progressive urinary frequency -PSA at 1.746 on 02/16/2023 - Continue monitoring CBC -Patient will continue Ceftriaxone course for 7 days total (2) Urinary retention: Plan: -PVR of 750ccs in ER -Case discussed with urology in ER. While catheter placement was initially deferred on 02/15, patient will be placed on gale catheter now as he still has retention and PVR of 403 on 02/16/2023. Patient was agreeable to gale placement following discussion. Urology also discussed outpatient follow-up with cystoscopy with patient. -Patient has been able to void multiple times throughout the day -Continue Tamsulosin (3) Anemia: Plan: -Hgb 10.5 on admission and 10.1 today -UA with microscopic hematuria, no gross hematuria per pt -Possibly due to hematuria although pt has also had some mild anemia over past few months which is being evaluated by PCP -Monitor CBC (4) Hyponatremia: Plan: -This is resolved. Na 133 on admission and 136 today -Mild hyponatremia possibly due to reduced solute intake -Continue fluid repletion ongoing -Monitor BMP (5) Rash: Plan: -Less likely Bactrim reaction given lack of rash with initial Bactrim course and limited to only thighs -More likely xerotic rash -Will monitor for now (6) Carotid stenosis: Plan: [place] [facility] [place] -Currently stable, no acute issues -Continue atorvastatin, aspirin (7) PAD (peripheral artery disease): Plan: -Continue atorvastatin, aspirin (8) Hypertension: Plan: -BP stable -Continue amlodipine-olmesartan (at half-dose, as pt has been doing this at home recently) (9) Anxiety: Plan: -Hydroxyzine PRN Admission and Anticipated Discharge Date Admission Date: February 15, 2023 Anthony Ortiz is a 67 year old male with past medical history of hypertension, peripheral artery disease, carotid stenosis s/p recent CEA 12/2022 presenting who presented to the ED with intermittent dysuria and urinary frequency yesterday. [place] [facility] [place] and developed postoperative urinary retention requiring Gale catheter for 8 days. Pt developed UTI in mid- January which was resolved with Bactrim course, seen by PCP on 02/12 with repeat clear UA in office. On 02/14 pt's symptoms of urinary frequency, dysuria and infrequent hematuria returned- called PCP and Bactrim course prescribed again for which the patient has completed 3/20 doses. That evening, pt began to have fever with Tmax 100.5 F and chills. His noticed his ankles were swollen this morning along with a rash on b/l thighs so he was brought to ER for evaluation. Pt arrived to ER hemodynamically stable. Initial evaluation significant for WBC 14.5, Hgb 10.5, Na 133, UA with LE+, WBCs but no bacteria. CT abdomen and pelvis demonstrating bladder wall thickening of 7mm. Post void residual of 750ccs in bladder scan were seen. ER interventions include 500cc NSS bolus, ceftriaxone 2g, Tylenol 1000 mg IV. Patient stated yesterday that he was able to void sponta neously and wishes not to have catheter placed again. Urology was consulted. He discussed with the patient that he develops any suprapubic discomfort, hematuria, flank pain, or worsening urinary retention as evidenced by higher post void residuals the use of a Gale catheter will need to be reconsidered and he is in agreement with this. Patient has been started on antibiotics in the form of Rocephin which should continue. Appropriate cultures including blood and urine have been sent and antibiotics to be tailored based on these results. Recommended following serial labs. Overnight, because patient was not having pain, he was not put back on catheter and he does not want to placed on catheter now that he is voiding. Patient attributes infection to catheter for voiding post CEA procedure. He was given pills to increase his urinary frequency and says that these have been helping. Patient denies dysuria and hematuria. He reports that he does feel some urinary retention, but it is not nearly as bad as it was when he was admitted to the ED. Patient has been drinking plenty of fluids as well. He has been tolerating the Ceftriaxone well. Review of Systems Review of Systems: General: Denies weight loss and fatigue Respiratory: Denies cough, shortness of breath, and wheezing Cardio: Denies chest pain, lower extremity edema and palpitations MSK: Denies joint pains and muscle weakness GI: Denies nausea and vomiting, abdominal pain, and any changes in bowel moveme nts : Reports urinary frequency Skin: Denies rashes, lesions, moles, and skin concerns Heme/Lymph: Denies bruising and bleeding Physical Exam 2 Physical Exam: General: Patient is an well appearing male, awake, alert, and oriented Eye: PERRL (pupils equal and responsive to light), EOMI (extraocular motions intact) HEENT: normocephalic, atraumatic, no lymphadenopathy Respiratory: lungs CTA, BS equal, symmetrical expansion, no rales, rhonchi or wheezing CV: normal rate and rhythm, no murmurs, rubs, or gallops GI: abdomen soft, non-tender, non-distended, normal bowel sounds, no organomegaly : no CVA tenderness Neurologic: alert and oriented Psychiatric: calm and cooperative, appropriate mood and affect Results & Data Results & Data Vital Signs (Past 12 Hours) Vital Signs Temp Pulse Resp BP Pulse Ox O2 Del Method 02/16/23 07:07 36.6 C 88 18 111/70 97 Room Air 02/16/23 00:01 36.7 C 81 20 136/65 98 Room Air Laboratory Results Laboratory Results WBC 9.16 K/ul (4.8-10.8) 02/16/23 05:49 RBC 3.23 M/uL (4.70-6.10) L 02/16/23 05:49 Hgb 10.1 g/dl (14.0-18.0) L 02/16/23 05:49 Hct 30.7 % (42.0-52.0) L 02/16/23 05:49 MCV 95.0 fL (80.0-100.0) 02/16/23 05:49 MCH 31.3 pg (25.0-34.0) 02/16/23 05:49 MCHC 32.9 g/dL (32.0-36.0) 02/16/23 05:49 RDW Std Deviation 49.7 fL (36.4-46.3) H 02/16/23 05:49 RDW Coeff of [place] 14.1 % (11.5-14.5) 02/16/23 05:49 Plt Count 232 K/uL (130-400) 02/16/23 05:49 MPV 9.4 fL (9.4-12.4) 02/16/23 05:49 Immature Gran % (Auto) 0.4 % 02/15/23 15:58 Neut % (Auto) 81.6 % 02/15/23 15:58 Lymph % (Auto) 9.9 % 02/15/23 15:58 [place] % (Auto) 7.2 % 02/15/23 15:58 Eos % (Auto) 0.7 % 02/15/23 15:58 Baso % (Auto) 0.2 % 02/15/23 15:58 Neut # (Auto) 11.87 K/uL (1.40-6.50) H 02/15/23 15:58 Lymph # (Auto) 1.44 K/uL (1.20-3.40) 02/15/23 15:58 [place] # (Auto) 1.04 K/uL (0.11-0.59) H 02/15/23 15:58 Eos # (Auto) 0.10 K/uL (0.00-0.50) 02/15/23 15:58 Baso # (Auto) 0.03 K/uL (0.00-0.20) 02/15/23 15:58 Immature Gran # (Auto) 0.06 K/uL (0.01-0.20) 02/15/23 15:58 Sodium 136 mmol/L (136-145) 02/16/23 05:49 Potassium 3.9 mmol/L (3.5-5.1) 02/16/23 05:49 Chloride 104 mmol/L (98-107) 02/16/23 05:49 Carbon Dioxide 24 mmol/L (21-32) 02/16/23 05:49 Anion Gap 8 (3-11) 02/16/23 05:49 BUN 10 mg/dl (6-23) 02/16/23 05:49 Creatinine 0.70 mg/dl (0.6-1.4) 02/16/23 05:49 Est Cr Clr Drug Dosing 94.1 ml/min 02/16/23 05:49 Est GFR ( Amer) 113.2 ml/min 02/16/23 05:49 Est GFR (Non-Af Amer) 97.7 ml/min 02/16/23 05:49 BUN/Creatinine Ratio 14.3 (10-20) 02/16/23 05:49 Glucose 131 mg/dl (70-99(Fasting)) H 02/16/23 05:49 Lactate 1.2 mmol/L (0.4-2.0) 02/15/23 21:13 Calcium 8.9 mg/dl (8.6-10.3) 02/16/23 05:49 Total Bilirubin 0.4 mg/dl (0.2-1.0) 02/15/23 15:58 AST 19 U/L (13-39) 02/15/23 15:58 ALT 23 U/L (7-52) 02/15/23 15:58 Alkaline Phosphatase 50 U/L (34-104) 02/15/23 15:58 Total Protein 7.4 gm/dl (6.0-8.3) 02/15/23 15:58 Albumin 4.0 gm/dl (3.4-5.0) 02/15/23 15:58 Globulin 3.4 gm/dl (2.5-4.0) 02/15/23 15:58 Albumin/Globulin Ratio 1.2 (0.9-2) 02/15/23 15:58 Lipase 19 U/L (11-82) 02/15/23 15:58 Prostate Specific Ag 1.746 ng/ml (0-4) 02/16/23 05:49 Urine Color Yellow 02/15/23 15:54 Urine Appearance Turbid (Clear) A 02/15/23 15:54 Urine pH 6.0 (4.5-7.5) 02/15/23 15:54 Ur Specific [place] 1.013 (1.000-1.030) 02/15/23 15:54 Urine Protein 1+ (Negative) H 02/15/23 15:54 Urine Glucose (UA) Negative (Negative) 02/15/23 15:54 Urine Ketones Negative (Negative) 02/15/23 15:54 Urine Blood 2+ (Negative) H 02/15/23 15:54 Urine Nitrite Negative (Negative) 02/15/23 15:54 Urine Bilirubin Negative (Negative) 02/15/23 15:54 Urine Urobilinogen Negative (Negative) 02/15/23 15:54 Ur Leukocyte Esterase 3+ (Negative) H 02/15/23 15:54 Urine WBC (Auto) >30 /hpf (0-5) H 02/15/23 15:54 Urine RBC (Auto) 0-4 /hpf (0-4) 02/15/23 15:54 U Hyaline Cast (Auto) 1-5 /lpf (0-5) 02/15/23 15:54 U Epithel Cells (Auto) 0-5 /lpf (0-5) 02/15/23 15:54 Urine Bacteria (Auto) Negative (Negative) 02/15/23 15:54 Impressions Chest X-Ray 02/15/23 13:14 XR chest 1V not portable HISTORY: fever COMPARISON: Chest 08/03/2013. Chest 06/05/2011. FINDINGS: No pneumothorax. No pleural effusions. No focal lung consolidations to suggest a pneumonia. No evidence for pulmonary edema. The cardiac silhouette is normal in size. Calcified plaque within the aortic knob. No acute fractures identified. There are degenerative changes noted within the left s[place]. Surgical clips seen within the right neck. Bilateral hilar prominence, unchanged. Stable 6 mm nodular density within the left midlung zone. Therefore, this is likely benign. IMPRESSION: No significant change compared to the prior study. No acute process. ACT 112: Negative or not required by law. Electronically signed by: Jonas Dillon M.D. 02/15/2023 3:33 PM Abdomen/Pelvis CT 02/15/23 18:49 Exam(s): CT ABDOMEN + PELVIS With Contrast IV Amt: 89 ML OPTIRAY 320 EXAM: CT Abdomen and Pelvis With Intravenous Contrast CLINICAL HISTORY: Reason for exam: recurrent UTI, fever. TECHNIQUE: Axial computed tomography images of the abdomen and pelvis with intravenous contrast. CTDI is 10.82 mGy and DLP is 490.02 mGy-cm. Automated exposure control was utilized for the study. A dose lowering technique was utilized adhering to the principles of ALARA. CONTRAST: Patient received 89 ML OPTIRAY 320 of IV contrast COMPARISON: No relevant prior studies available. FINDINGS: Lung bases: Unremarkable. No mass. No consolidation. ABDOMEN: Liver: Hepatic steatosis. Gallbladder and bile ducts: Unremarkable. No calcified stones. No ductal dilation. Pancreas: Unremarkable. No mass. No ductal dilation. Spleen: Unremarkable. No splenomegaly. Adrenals: Unremarkable. No mass. Kidneys and ureters: Unremarkable. No hydronephrosis or delayed nephrogram. Stomach and bowel: Diverticulosis, without acute diverticulitis. No small bowel obstruction. No free air. PELVIS: Appendix: No findings to suggest acute appendicitis. Bladder: Wall thickening of the urinary bladder measures 7 mm. Correlate for UTI or bladder outlet obstruction. RIGHT bladder diverticulum measures 4.6 x 3.3 cm. Reproductive: Unremarkable as visualized. ABDOMEN and PELVIS: Intraperitoneal space: See above. Bones/joints: Degenerative changes of the spine. No acute fracture. No dislocation. Soft tissues: Unremarkable. Vasculature: Atherosclerotic changes of the aorta. No abdominal aortic aneurysm. Lymph nodes: Unremarkable. No enlarged lymph nodes. IMPRESSION: 1. No hydronephrosis or delayed nephrogram. 2. Wall thickening of the urinary bladder measures 7 mm. Correlate for UTI or bladder outlet obstruction. RIGHT bladder diverticulum measures 4. 6 x 3.3 cm. Urinalysis recommended. 3. Diverticulosis, without acute diverticulitis. No small bowel obstruction. No free air. Electronically signed by: Javi Conde MD 02/15/23 19:57 PM
--- NOTE | 2023-02-16 13:59 | Discharge Summary ---
Date of Service February 16, 2023 Admission HPI Per Admitting Provider Geronimo Ortiz is a 67 year old male with past medical history of hypertension, peripheral artery disease, carotid stenosis s/p recent CEA 12/2022 who presented to the ED with intermittent dysuria and urinary frequency yesterday and admitted for UTI and urinary retention. Patient was hospitalized at [facility] for CEA and developed postoperative urinary retention requiring Gale catheter for 8 days. Pt developed UTI in mid- January which was resolved with Bactrim course, seen by PCP on 02/12 with repeat clear UA in office. On 02/14 pt's symptoms of urinary frequency, dysuria and infrequent hematuria returned- called PCP and Bactrim course prescribed again for which the patient has completed 3/20 doses. That evening, pt began to have fever with Tmax 100.5 F and chills. His noticed his ankles were swollen this morning along with a rash on b/l thighs so he was brought to ER for evaluation. Pt arrived to ER hemodynamically stable. Initial evaluation significant for WBC 14.5, Hgb 10.5, Na 133, UA with LE+, WBCs but no bacteria. CT abdomen and pelvis demonstrating bladder wall thickening of 7mm. Post void residual of 750ccs in bladder scan were seen. ER interventions include 500cc NSS bolus, ceftriaxone 2g, Tylenol 1000 mg IV. Patient stated yesterday that he was able to void spontaneously and wishes not to have catheter placed again. Urology was consulted. He discussed with the patient that he develops any suprapubic discomfort, hematuria, flank pain, or worsening urinary retention as evidenced by higher post void residuals the use of a Gale catheter will need to be reconsidered and he is in agreement with this. Patient has been started on antibiotics in the form of Rocephin which should continue. Appropriate cultures including blood and urine have been sent and antibiotics to be tailored based on these results. Recommended following serial labs. Overnight, because patient was not having pain, he was not put back on catheter and did not want to be placed on catheter now that he is voiding. He was given Tamsulosin and Ceftriaxone and says that these have been helping and he is tolerating them well. Patient denies dysuria and hematuria. He reports that he does feel some urinary retention, but it is not nearly as bad as it was when he was admitted to the ED. Patient has been drinking plenty of fluids as well. At present, pt reports feeling well and denies acute complaints. Urology has consulted and he has been placed on a catheter, patient was in agreement with this plan. Principal Diagnosis UTI, Urinary retention Discharge Exam General: Patient is an well appearing male, awake, alert, and oriented Eye: PERRL (pupils equal and responsive to light), EOMI (extraocular motions intact) HEENT: normocephalic, atraumatic, no lymphadenopathy Respiratory: lungs CTA, BS equal, symmetrical expansion, no rales, rhonchi or wheezing CV: normal rate and rhythm, no murmurs, rubs, or gallops GI: abdomen soft, non-tender, non-distended, normal bowel sounds, no organomegaly : no CVA tenderness Neurologic: alert and oriented Psychiatric: calm and cooperative, appropriate mood and affect Discharge Data Allergies Allergy/AdvReac Type Severity Reaction Status Date / Time No Known Allergies Allergy Verified 02/10/23 14:04 Consultations 02/15/23 21:13 ED Decision to Admit Stat 02/15/23 22:02 Consult Urology Routine Ordered Studies Laboratory Results WBC 9.16 K/ul (4.8-10.8) 02/16/23 05:49 RBC 3.23 M/uL (4.70-6.10) L 02/16/23 05:49 Hgb 10.1 g/dl (14.0-18.0) L 02/16/23 05:49 Hct 30.7 % (42.0-52.0) L 02/16/23 05:49 MCV 95.0 fL (80.0-100.0) 02/16/23 05:49 MCH 31.3 pg (25.0-34.0) 02/16/23 05:49 MCHC 32.9 g/dL (32.0-36.0) 02/16/23 05:49 RDW Std Deviation 49.7 fL (36.4-46.3) H 02/16/23 05:49 RDW Coeff of [place] 14.1 % (11.5-14.5) 02/16/23 05:49 Plt Count 232 K/uL (130-400) 02/16/23 05:49 MPV 9.4 fL (9.4-12.4) 02/16/23 05:49 Immature Gran % (Auto) 0.4 % 02/15/23 15:58 Neut % (Auto) 81.6 % 02/15/23 15:58 Lymph % (Auto) 9.9 % 02/15/23 15:58 [place] % (Auto) 7.2 % 02/15/23 15:58 Eos % (Auto) 0.7 % 02/15/23 15:58 Baso % (Auto) 0.2 % 02/15/23 15:58 Neut # (Auto) 11.87 K/uL (1.40-6.50) H 02/15/23 15:58 Lymph # (Auto) 1.44 K/uL (1.20-3.40) 02/15/23 15:58 Marion # (Auto) 1.04 K/uL (0.11-0.59) H 02/15/23 15:58 Eos # (Auto) 0.10 K/uL (0.00-0.50) 02/15/23 15:58 Baso # (Auto) 0.03 K/uL (0.00-0.20) 02/15/23 15:58 Immature Gran # (Auto) 0.06 K/uL (0.01-0.20) 02/15/23 15:58 Sodium 136 mmol/L (136-145) 02/16/23 05:49 Potassium 3.9 mmol/L (3.5-5.1) 02/16/23 05:49 Chloride 104 mmol/L (98-107) 02/16/23 05:49 Carbon Dioxide 24 mmol/L (21-32) 02/16/23 05:49 Anion Gap 8 (3-11) 02/16/23 05:49 BUN 10 mg/dl (6-23) 02/16/23 05:49 Creatinine 0.70 mg/dl (0.6-1.4) 02/16/23 05:49 Est Cr Clr Drug Dosing 94.1 ml/min 02/16/23 05:49 Est GFR ( Amer) 113.2 ml/min 02/16/23 05:49 Est GFR (Non-Af Amer) 97.7 ml/min 02/16/23 05:49 BUN/Creatinine Ratio 14.3 (10-20) 02/16/23 05:49 Glucose 131 mg/dl (70-99(Fasting)) H 02/16/23 05:49 Lactate 1.2 mmol/L (0.4-2.0) 02/15/23 21:13 Calcium 8.9 mg/dl (8.6-10.3) 02/16/23 05:49 Total Bilirubin 0.4 mg/dl (0.2-1.0) 02/15/23 15:58 AST 19 U/L (13-39) 02/15/23 15:58 ALT 23 U/L (7-52) 02/15/23 15:58 Alkaline Phosphatase 50 U/L (34-104) 02/15/23 15:58 Total Protein 7.4 gm/dl (6.0-8.3) 02/15/23 15:58 Albumin 4.0 gm/dl (3.4-5.0) 02/15/23 15:58 Globulin 3.4 gm/dl (2.5-4.0) 02/15/23 15:58 Albumin/Globulin Ratio 1.2 (0.9-2) 02/15/23 15:58 Lipase 19 U/L (11-82) 02/15/23 15:58 Prostate Specific Ag 1.746 ng/ml (0-4) 02/16/23 05:49 Urine Color Yellow 02/15/23 15:54 Urine Appearance Turbid (Clear) A 02/15/23 15:54 Urine pH 6.0 (4.5-7.5) 02/15/23 15:54 Ur Specific [place] 1.013 (1.000-1.030) 02/15/23 15:54 Urine Protein 1+ (Negative) H 02/15/23 15:54 Urine Glucose (UA) Negative (Negative) 02/15/23 15:54 Urine Ketones Negative (Negative) 02/15/23 15:54 Urine Blood 2+ (Negative) H 02/15/23 15:54 Urine Nitrite Negative (Negative) 02/15/23 15:54 Urine Bilirubin Negative (Negative) 02/15/23 15:54 Urine Urobilinogen Negative (Negative) 02/15/23 15:54 Ur Leukocyte Esterase 3+ (Negative) H 02/15/23 15:54 Urine WBC (Auto) >30 /hpf (0-5) H 02/15/23 15:54 Urine RBC (Auto) 0-4 /hpf (0-4) 02/15/23 15:54 U Hyaline Cast (Auto) 1-5 /lpf (0-5) 02/15/23 15:54 U Epithel Cells (Auto) 0-5 /lpf (0-5) 02/15/23 15:54 Urine Bacteria (Auto) Negative (Negative) 02/15/23 15:54 Impressions Chest X-Ray 02/15/23 13:14 XR chest 1V not portable HISTORY: fever COMPARISON: Chest 08/03/2013. Chest 06/05/2011. FINDINGS: No pneumothorax. No pleural effusions. No focal lung consolidations to suggest a pneumonia. No evidence for pulmonary edema. The cardiac silhouette is normal in size. Calcified plaque within the aortic knob. No acute fractures identified. There are degenerative changes noted within the left s[place]. Surgical clips seen within the right neck. Bilateral hilar prominence, unchanged. Stable 6 mm nodular density within the left midlung zone. Therefore, this is likely benign. IMPRESSION: No significant change compared to the prior study. No acute process. ACT 112: Negative or not required by law. Electronically signed by: Jonas Dillon M.D. 02/15/2023 3:33 PM Abdomen/Pelvis CT 02/15/23 18:49 Exam(s): CT ABDOMEN + PELVIS With Contrast IV Amt: 89 ML OPTIRAY 320 EXAM: CT Abdomen and Pelvis With Intravenous Contrast CLINICAL HISTORY: Reason for exam: recurrent UTI, fever. TECHNIQUE: Axial computed tomography images of the abdomen and pelvis with intravenous contrast. CTDI is 10.82 mGy and DLP is 490.02 mGy-cm. Automated exposure control was utilized for the study. A dose lowering technique was utilized adhering to the principles of ALARA. CONTRAST: Patient received 89 ML OPTIRAY 320 of IV contrast COMPARISON: No relevant prior studies available. FINDINGS: Lung bases: Unremarkable. No mass. No consolidation. ABDOMEN: Liver: Hepatic steatosis. Gallbladder and bile ducts: Unremarkable. No calcified stones. No ductal dilation. Pancreas: Unremarkable. No mass. No ductal dilation. Spleen: Unremarkable. No splenomegaly. Adrenals: Unremarkable. No mass. Kidneys and ureters: Unremarkable. No hydronephrosis or delayed nephrogram. Stomach and bowel: Diverticulosis, without acute diverticulitis. No small bowel obstruction. No free air. PELVIS: Appendix: No findings to suggest acute appendicitis. Bladder: Wall thickening of the urinary bladder measures 7 mm. Correlate for UTI or bladder outlet obstruction. RIGHT bladder diverticulum measures 4.6 x 3.3 cm. Reproductive: Unremarkable as visualized. ABDOMEN and PELVIS: Intraperitoneal space: See above. Bones/joints: Degenerative changes of the spine. No acute fracture. No dislocation. Soft tissues: Unremarkable. Vasculature: Atherosclerotic changes of the aorta. No abdominal aortic aneurysm. Lymph nodes: Unremarkable. No enlarged lymph nodes. IMPRESSION: 1. No hydronephrosis or delayed nephrogram. 2. Wall thickening of the urinary bladder measures 7 mm. Correlate for UTI or bladder outlet obstruction. RIGHT bladder diverticulum measures 4. 6 x 3.3 cm. Urinalysis recommended. 3. Diverticulosis, without acute diverticulitis. No small bowel obstruction. No free air. Electronically signed by: Javi Conde MD 02/15/23 19:57 PM 02/15/23 18:49 CT abd pelvis IV con only Stat Hospital Course (1) Urinary tract infection: -Pt presenting with recurrent UTI symptoms likely 2/2 retention as below. Urine appears infectious appearing UA. Did not meet SIRS criteria on admission. -Urine and blood cx pending; urine cx from 01/2023 with pansensitive Enterobacter cloaca. -Empirically treated with rocephin. Switched for cefdinir on discharge (total 7 days). (2) Urinary retention: -PVR of 750ccs in ER -Urology consulted- still had retention despite conservative measures (PVR of 403). Patient was finally agreeable to gale placement. Cont. tamsulosin. Urology will f/u with him in 1-2 weeks. (3) Anemia: -Hgb 10.5 on admission, chronic, stable -UA with microscopic hematuria, no gross hematuria per pt (4) Hyponatremia: -Na 133 on admission, now resolved (5) Rash: -Less likely Bactrim reaction given lack of rash with initial Bactrim course and limited to only thighs -More likely xerotic rash, patient will use moisturizing lotion and follow up with PCP as needed. (6) Carotid stenosis: -S/p CEA at [facility] -Continue atorvastatin, aspirin (7) PAD (peripheral artery disease): -Continue atorvastatin, aspirin (8) Hypertension: -BP stable -Continue amlodipine-olmesartan (at half-dose, as pt has been doing this at home recently) (9) Anxiety: -hydroxyzine prn Total Time Total Time Spent Total Time Spent (In Minutes): <30 Discharge Plan Discharge Items Patient Disposition: Home - Self-Care Reason For Visit: UTI Discharge Diagnosis: UTI, urinary retention Activity: Per Instructions section Non-emergency contact: Primary Care Provider Call non-emergency contact if: you have any medication questions, your symptoms worsen, your pain is worsening and your temperature is above 101 Follow-up/Referrals: Keon Whitley MD [Primary Care Provider] - 02/19/23 2:00 pm (w/ Leny Mcdaniel ) Anais Perry CRNP [Nurse Practitioner] - 03/03/23 10:00 am (f/u urinary retention w/ Dr. Leger ) Diet: Heart Healthy Addtl Attending Provider Instructions: You were admitted to the hospital for urinary symptoms. Your urine was tested and it appeared that you have an infection. A urine culture was sent to determine the specific bacteria causing your infection and what antibiotic will work best to treat it. You were treated with antibiotics while hospitalized and will be discharged on a course as well. Your bladder was also scanned after urinating and it was found that you are retaining urine. Due to this, you will be placed on the medication Flomax (tamsulosin). This needs to be discussed further with your PCP and urology team. A discharge summary will be sent to your primary care physician to ensure continuity of care. Please bring this discharge summary with you to your next office appointment so that your provider can review it at that time. Medications: Your medication list has been reviewed and reconciled upon discharge to ensure accuracy and continuity of care. An updated list of all your medications is included with your hospital discharge paperwork. Please review this list closely and make note of any changes to your medications. - You should take the antibiotic cefdinir 300 mg twice per day for 7 days. This is to treat a urinary infection. Stop taking the bactrim. - You should also continue to take tamsulosin (Flomax) 0.4mg each morning. This may help with your urinary retention. This should be further discussed with your urology team. Follow up appointments: - Make a follow up appointment with your PCP within the next week. It is very important that you follow up with them shortly after discharge from the hospital. - Make sure to schedule a follow up within the next week for follow up. - Keep all of your follow up appointments as already scheduled. If you cannot make an appointment, notify your provider. CONTACT YOUR PRIMARY CARE PROVIDER if you experience any of the following: - Urinating less than usual - Difficulty following your treatment plan - Difficulty taking any of your medications CALL 911 OR GO TO THE EMERGENCY DEPARTMENT if you experience any of the following: - Sudden, severe abdominal pain or nausea/vomiting - Severe chest pain or chest pain that radiates to your jaw or arm - Sudden, severe shortness of breath or difficulty breathing Pending Studies at Discharge: Yes (urine and blood culture) Stand-Alone Forms: My [facility], Smoking Cessation Medications and DC Order Prescriptions: New tamsulosin 0.4 mg Capsule 0.4 mg PO QAM 30 Days Qty: 30 0RF cefdinir 300 mg capsule 300 mg PO BID 7 Days Qty: 14 0RF hydroxyzine HCl 25 mg tablet 25 mg PO BID PRN (Reason: anxiety) Qty: 20 0RF Continued cholecalciferol (vitamin D3) 25 mcg (1,000 unit) capsule 25 mcg PO DAILY ascorbic acid (vitamin C) 1,000 mg capsule 1 g PO DAILY amlodipine-olmesartan 5-20 mg tablet 1 tab PO DAILY Qty: 90 3RF aspirin [Adult Low Dose Aspirin] 81 mg tablet,delayed release (DR/EC) 81 mg PO DAILY Qty: 30 11RF atorvastatin 40 mg tablet 40 mg PO DAILY Qty: 30 6RF multivitamin Tablet 1 tab PO QAM Discontinued sulfamethoxazole-trimethoprim [Bactrim DS] 800-160 mg tablet 1 tab PO BID 14 Days Qty: 28 0RF Discharge Orders: Discharge Order (Routine); Ordered 02/16/23 Ordered By: Joshua Salguero Admission Data Admit Date/Time: 02/15/23 21:30 Attending Provider: Evans Mast Admit Provider: Kin Quarles Primary Care Provider: Keon Whitley Other Providers: Mirza Leger; Yogi Ham; Cheng Song; Alma Palomo; Zhang Kilpatrick; Anais Perry; Linda Marte; Bryce Rogers; Genoveva Perez; Lon Miles; Hiram Griffin; Kris Whitehead Other Interventions: Discharge Summary Assessment (RN) Last Done: 02/16/23 15:11 Supervising Physician Co-Signing Physician Notes I personally examined the patient and verified all blackmon points of history and exam, discussed case, and agree with decision making with Dr Salguero and Cara Floyd MS2 feeling okay. Gale catheter in. Extensive discussions, answered all questions to the best my ability and to patient/'s satisfaction. He feels okay to go home. Vitals noted, in general he is awake and alert pleasant no distress, walking in the room with no difficulty, Gale in place, seems to be tolerating fine. Breathing unlabored no accessory muscle use good effort. Skin shows no rashes no pallor or icterus. Neuro without focal deficits. Urinary tract infection, urinary retentionnow status post Gale. Treat with a course of cefdinir. Safe/stable for home. Outpatient urology follow-up in regards to urinary retention, and chronic management thereof. otherwise as above
--- NOTE | 2023-02-16 17:59 | Billing Data ---
Date of Service February 16, 2023 Coding Level of Care Code 42191 IN/OBS DISCH 30 MIN/LESS
[2023-02-16] MEDS ORDERED: cefTRIAXone SODIUM 1,000 MG in DEXTROSE 5 % MINI-B 50 ML IV SCH (18:00)
[2023-02-16] MEDS: hydrOXYzine HCl 25 MG TAB PO PRN (18:06)
--- NOTE | 2023-02-17 05:01 | Billing Data ---
Date of Service February 17, 2023 Coding Level of Care Code 35663 INT INP/OBS CARE
== END 2023-02-16 18:59 | disposition home or self-care (01) ==
LOC: ED 12:57 → EDINP 12:57 → SUATTDRO 21:30 → EDINP 23:40 → 3E 02-16 00:05

== ENCOUNTER 2023-04-05 15:40 | Inpatient (IN) ==
[2023-04-05] MEDS ORDERED: SODIUM CHLORIDE 0.9% 1,000 ML IV ONE (16:05)
[2023-04-05 16:25] LABS: Basophils # (auto) 0.04 K/uL (0.00-0.20); Basophils % (auto) 0.5 %; Eosinophils # (auto) 0.04 K/uL (0.00-0.50); Eosinophils % (auto) 0.5 %; Hematocrit (blood only) 36.3 % (42.0-52.0); Hemoglobin 12.3 g/dl (14.0-18.0); Immature Granulocytes # (auto) 0.02 K/uL (0.01-0.20); Immature Granulocytes % (auto) 0.2 %; Lymphocytes # (auto) 2.24 K/uL (1.20-3.40); Lymphocytes % (auto) 26.5 %; Mean Corpuscular Hemoglobin 31.1 pg (25.0-34.0); Mean Corpuscular Hgb Conc 33.9 g/dL (32.0-36.0); Mean Corpuscular Volume 91.9 fL (80.0-100.0); Mean Platelet Volume 9.4 fL (9.4-12.4); Monocytes # (auto) 1.13 K/uL (0.11-0.59); Monocytes % (auto) 13.4 %; Neutrophils # (auto) 4.98 K/uL (1.40-6.50); Neutrophils % (auto) 58.9 %; Platelet Count 330 K/uL (130-400); RDW Coefficient of Variation 13.8 % (11.5-14.5); RDW Standard Deviation 46.9 fL (36.4-46.3); Red Blood Count 3.95 M/uL (4.70-6.10); White Blood Count 8.45 K/ul (4.8-10.8)
[2023-04-05 16:39] LABS: Albumin Globulin Ratio 1.1 (0.9-2); Albumin Level 4.3 gm/dl (3.4-5.0); BUN Creatinine Ratio 12.3 (10-20); Bilirubin,Total 0.3 mg/dl (0.2-1.0); Calcium 9.8 mg/dl (8.6-10.3); Creatinine Clr Calc Pharmacy 89.6 ml/min; Est GFR (African American) 111.2 ml/min; Globulin 3.9 gm/dl (2.5-4.0); Magnesium 2.1 mg/dl (1.7-2.4); Potassium 4.1 mmol/L (3.5-5.1); Total Protein 8.2 gm/dl (6.0-8.3)
--- NOTE | 2023-04-05 16:39 | XRay Report ---
XR chest 1V portable CLINICAL HISTORY: Dysrhythmia TECHNIQUE: Single frontal radiograph of the chest was obtained. Comparison: Comparison is made to chest radiograph 04/02/2023 FINDINGS: No lines and tubes are seen. Calcified aortic knob is seen. The lungs are clear. No evidence of pleur al effusion or pneumothorax. IMPRESSION: No acute chest disease. ACT 112: Negative or not required by law. Electronically signed by: Vj Shelley M.D. 04/05/2023 4:38 PM
[2023-04-05 16:45] LABS: Troponin I High Sensitivity 10.8 pg/ml (0-20)
--- NOTE | 2023-04-05 16:46 | Electrocardiogram Report ---
Test Reason : Blood Pressure : / mmHG Vent. Rate : 164 BPM Atrial Rate : 000 BPM P-R Int : 000 ms QRS Dur : 074 ms QT Int : 240 ms P-R-T Axes : 000 -31 039 degrees QTc Int : 396 ms Supraventricular tachycardia (likely atrial flutter) Left axis deviation Abnormal ECG When compared with ECG of 02-APR-2023 17:43, Premature ventricular complexes are now Present Vent. rate has increased BY 66 BPM QRS axis Shifted left Confirmed by Cheng Menezes ([id number]) on 04/05/2023 4:45:31 PM Referred By: Confirmed By:Saran Menezes
[2023-04-05 16:54] LABS: Thyroid Stimulating Hormone 1.185 uIu/ml (0.300-4.500)
[2023-04-05] MEDS ORDERED: OPTIRAY 320 125ml IV ONE (16:59)
--- NOTE | 2023-04-05 17:47 | CT Scan Report ---
CT angio chest PE protocol CLINICAL HISTORY: ro pe TECHNIQUE: Multidetector row helical CT of the chest was performed with angiographic protocol. Weir l and sagittal reformations were obtained. Coronal and sagittal MIPS were obtained from the axial amber a set and were submitted for review. Automated dose lowering techniques and/or adjustment according to patient size were utilized for this exam. CT DOSE: 514.41 mGy.cm Comparison: None available at the time of this dictation. FINDINGS: Lungs and pleura: Normal. Heart and pericardium: Heart size is normal. No pericardial effusion. Vessels: No evidence of pulmonary embolism. Mild atherosclerotic disease is seen. Mediastinum and cassie: Unremarkable. Chest wall and lower neck: Unremarkable. Abdomen: A hiatal hernia is seen. Bones: Degenerative changes in the thoracic spine. IMPRESSION: No acute abnormality and in particular no evidence of pulmonary embolus. ACT 112: Negative or not required by law. Electronically signed by: Vj Shelley M.D. 04/05/2023 5:45 PM
[2023-04-05] MEDS ORDERED: LORazepam 1 MG TAB SL STA (18:11)
[2023-04-05] MEDS ORDERED: CIPROFLOXACIN 500 MG TAB PO STA (19:05)
[2023-04-05 19:08] LABS: D Dimer 470 ug/L FEU (0-500); Partial Thromboplastin Ratio 1.1; Partial Thromboplastin Time 30 Seconds (21-31); Prothrombin Time 11.1 Seconds (9.0-12.0)
--- NOTE | 2023-04-05 19:14 | History & Physical Report ---
Date of Service April 05, 2023 Assessment & Plan (1) Atrial flutter: Plan: 67 yo male with PMHx of anxiety, bladder diverticulum, BPH w/ LUTS, anemia, carotid stenosis s/p carotid endarterectomy, PAD, and HTN. #Atrial Flutter/Afib -presented with 3 months intermittent lightheadedness/racing heart. Per reports, afib/aflutter on telemetry and SVT on EKG. Symptoms could stem from undiagnosed arrhythmia. No obvious signs of infection. No electrolyte abnormality. -echo pending -monitor on tele -cardiology consulted -may require outpatient holter #UTI -discharged from [facility] ED 04/02 on ciprofloxacin x3 days (completed with this evening's dose). Urine cx grew Enterobacter, however, this could also represent contaminant. UA no longer with microscopic hematuria. -defer to day team for further abx #BPH w/ LUTS #Bladder Diverticulum -follows with [facility]rology -cont. tamsulosin, dutasteride #Carotid stenosis s/p endarterectomy #PAD -endarterectomy Fall 2022 - needs outpatient f/u with vascular surgeon ([facility]) -cont. asa, statin #HTN -cont. amlodipine-olmesartan #Anxiety -ativan prn #HLD -cont. statin DVT ppx: SCDs FEN/GI: HH Code Status: Full Dispo: Med Tele (2) Anxiety: (3) Bladder diverticulum: (4) Benign localized prostatic hyperplasia with lower urinary tract symptoms (LUTS): (5) Anemia: (6) Carotid stenosis: (7) PAD (peripheral artery disease): (8) Hypertension: History of Present Illness Chief Complaint: atrial flutter Primary Care Provider: Keon Whitley MD 67 yo male with PMHx of anxiety, bladder diverticulum, BPH w/ LUTS, anemia, carotid stenosis s/p carotid endarterectomy, PAD, and HTN. Patient states that ever since his carotid enterectomy and fall 2022 he has felt intermittently unwell. He will have sporadic episodes of feeling lightheaded and extremely anxious. More recently few days ago his symptoms were so bad he felt like he was about to pass out and presented to [facility] for evaluation. Per reports upon EMS evaluation patient was in A-fib/a flutter. In the ED he was given a liter bolus and Ativan with resolution of his symptoms and was discharged home on a short course of ciprofloxacin given his urinary history. Earlier today patient was experiencing similar symptoms and per his urologist was recommended to present back to the hospital for further evaluation. Did initially present again in A-fib/a flutter with sudden resolution. Denies fevers, chills, headache, chest pain, shortness of breath, abdominal pain, nausea, vomiting, constipation, diarrhea, dysuria. He has been urinating normally without any gross hematuria. Allergies Allergy/AdvReac Type Severity Reaction Status Date / Time No Known Allergies Allergy Verified 04/13/23 11:09 Home Medications Medication Instructions Recorded Confirmed Type multivitamin 1 tab PO QAM 12/22/18 04/13/23 History aspirin 81 mg tablet,delayed 81 mg PO DAILY #30 tabs 08/13/22 04/13/23 Rx release (Adult Low Dose Aspirin) atorvastatin 40 mg tablet 40 mg PO DAILY #30 tabs 08/13/22 04/13/23 Rx ascorbic acid (vitamin C) 1,000 mg 1 g PO DAILY 01/14/23 04/13/23 History capsule cholecalciferol (vitamin D3) 25 25 mcg PO DAILY 01/14/23 04/13/23 History mcg (1,000 unit) capsule dutasteride 0.5 mg capsule 0.5 mg PO DAILY #90 caps 02/25/23 04/13/23 Rx tamsulosin 0.4 mg capsule 0.4 mg PO DAILY #30 caps 03/26/23 04/13/23 Rx apixaban 5 mg tablet (Eliquis) 5 mg PO BID 30 days #60 tabs 04/06/23 04/13/23 Rx diltiazem HCl 180 mg 180 mg PO DAILY #30 caps 04/09/23 04/13/23 Rx capsule,extended release 24 hr, controlled (DILT-XR) lorazepam 0.5 mg tablet 0.5 mg PO HS #7 tabs 04/09/23 04/13/23 Rx olmesartan 20 mg tablet 20 mg PO DAILY #30 tabs 04/09/23 04/13/23 Rx sulfamethoxazole 800 1 tab PO Q12H #9 tabs 04/09/23 04/13/23 Rx mg-trimethoprim 160 mg tablet (Bactrim DS) Past Med/Surg History Medical History Anxiety Surgical History History of arthroscopy of left knee unknown date Hx of vasectomy unknown date History of right inguinal hernia repair unknown date History of colonoscopy 01/06/2016 and 01/10/2019 History of tooth extraction all teeth removed Family History Unknown COPD (chronic obstructive pulmonary disease) Father Family history of diabetes mellitus Myocardial infarction Other No family history of adverse response to anesthesia Denies family history of Ovarian cancer Prostate cancer Breast cancer Colorectal cancer Social History Smoking Status: Former smoker Tobacco Type: Cigarettes Second Hand Exposure: No; Do You Dip or Chew Tobacco: No; Hx Alcohol Use: No Hx Substance Use: No Preferred Language: Estonian Communication Ability: Effective Visual Impairment: No Limitations Hearing Ability: Normal 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 AOx3. Vitals as above. HEENT: No scleral injection or discharge. Moist mucous membranes. Neck: Supple without lymphadenopathy or thyromegaly. Trachea midline. Lungs: Clear to auscultation bilaterally with good effort. No wheezes/rales/rhonchi. Cardiac: Regular rate and rhythm. No murmurs. No lower extremity edema. 2+ distal peripheral pulses. Abdomen: Bowel sounds present. Soft, nontender, and nondistended.No guarding. No hepatosplenomegaly. MSK: No cyanosis or clubbing. Extremities motor strength 5/5. Skin: No rashes, warm, dry. Neurologic: no focal deficits Results & Data Results & Data Vital Signs (Past 12 Hours) Vital Signs Temp Pulse Resp BP Pulse Ox O2 Del Method 04/05/23 18:00 80 15 97 04/05/23 17:30 83 15 100 04/05/23 17:04 100 H 16 04/05/23 17:04 147/76 H 04/05/23 16:40 94 H 21 98 04/05/23 16:30 86 15 99 04/05/23 16:20 85 16 99 04/05/23 16:10 103 H 16 98 04/05/23 16:00 91 H 20 99 04/05/23 15:55 82 04/05/23 15:52 162 H 04/05/23 15:50 94 H 16 100 04/05/23 15:50 Room Air 04/05/23 15:50 37.7 C H 89 18 149/83 H 98 Room Air Laboratory Results Laboratory Results WBC 8.45 K/ul (4.8-10.8) 04/05/23 16:00 RBC 3.95 M/uL (4.70-6.10) L 04/05/23 16:00 Hgb 12.3 g/dl (14.0-18.0) L 04/05/23 16:00 Hct 36.3 % (42.0-52.0) L 04/05/23 16:00 MCV 91.9 fL (80.0-100.0) 04/05/23 16:00 MCH 31.1 pg (25.0-34.0) 04/05/23 16:00 MCHC 33.9 g/dL (32.0-36.0) 04/05/23 16:00 RDW Std Deviation 46.9 fL (36.4-46.3) H 04/05/23 16:00 RDW Coeff of [place] 13.8 % (11.5-14.5) 04/05/23 16:00 Plt Count 330 K/uL (130-400) 04/05/23 16:00 MPV 9.4 fL (9.4-12.4) 04/05/23 16:00 Immature Gran % (Auto) 0.2 % 04/05/23 16:00 Neut % (Auto) 58.9 % 04/05/23 16:00 Lymph % (Auto) 26.5 % 04/05/23 16:00 Stokes % (Auto) 13.4 % 04/05/23 16:00 Eos % (Auto) 0.5 % 04/05/23 16:00 Baso % (Auto) 0.5 % 04/05/23 16:00 Neut # (Auto) 4.98 K/uL (1.40-6.50) 04/05/23 16:00 Lymph # (Auto) 2.24 K/uL (1.20-3.40) 04/05/23 16:00 Stokes # (Auto) 1.13 K/uL (0.11-0.59) H 04/05/23 16:00 Eos # (Auto) 0.04 K/uL (0.00-0.50) 04/05/23 16:00 Baso # (Auto) 0.04 K/uL (0.00-0.20) 04/05/23 16:00 Immature Gran # (Auto) 0.02 K/uL (0.01-0.20) 04/05/23 16:00 PT 11.1 Seconds (9.0-12.0) 04/05/23 18:21 INR 1.0 (0.9-1.1) 04/05/23 18:21 APTT 30 Seconds (21-31) 04/05/23 18:21 PTT Ratio 1.1 04/05/23 18:21 D-Dimer 470 ug/L FEU (0-500) 04/05/23 18:21 Sodium 134 mmol/L (136-145) L 04/05/23 16:00 Potassium 4.1 mmol/L (3.5-5.1) 04/05/23 16:00 Chloride 102 mmol/L (98-107) 04/05/23 16:00 Carbon Dioxide 24 mmol/L (21-32) 04/05/23 16:00 Anion Gap 8 (3-11) 04/05/23 16:00 BUN 9 mg/dl (6-23) 04/05/23 16:00 Creatinine 0.73 mg/dl (0.6-1.4) 04/05/23 16:00 Est Cr Clr Drug Dosing 89.6 ml/min 04/05/23 16:00 Est GFR ( Amer) 111.2 ml/min 04/05/23 16:00 Est GFR (Non-Af Amer) 96.0 ml/min 04/05/23 16:00 BUN/Creatinine Ratio 12.3 (10-20) 04/05/23 16:00 Glucose 112 mg/dl (70-99(Fasting)) H 04/05/23 16:00 Lactate 1.0 mmol/L (0.4-2.0) 04/05/23 16:11 Calcium 9.8 mg/dl (8.6-10.3) 04/05/23 16:00 Magnesium 2.1 mg/dl (1.7-2.4) 04/05/23 16:00 Total Bilirubin 0.3 mg/dl (0.2-1.0) 04/05/23 16:00 AST 22 U/L (13-39) 04/05/23 16:00 ALT 14 U/L (7-52) 04/05/23 16:00 Alkaline Phosphatase 54 U/L (34-104) 04/05/23 16:00 Troponin I High Sens 10.8 pg/ml (0-20) 04/05/23 16:00 Total Protein 8.2 gm/dl (6.0-8.3) 04/05/23 16:00 Albumin 4.3 gm/dl (3.4-5.0) 04/05/23 16:00 Globulin 3.9 gm/dl (2.5-4.0) 04/05/23 16:00 Albumin/Globulin Ratio 1.1 (0.9-2) 04/05/23 16:00 TSH 1.185 uIu/ml (0.300-4.500) 04/05/23 16:00 Impressions Chest X-Ray 04/05/23 15:50 XR chest 1V portable CLINICAL HISTORY: Dysrhythmia TECHNIQUE: Single frontal radiograph of the chest was obtained. Comparison: Comparison is made to chest radiograph 04/02/2023 FINDINGS: No lines and tubes are seen. Calcified aortic knob is seen. The lungs are clear. No evidence of pleural effusion or pneumothorax. IMPRESSION: No acute chest disease. ACT 112: Negative or not required by law. Electronically signed by: Vj Shelley M.D. 04/05/2023 4:38 PM Chest CTA 04/05/23 16:27 CT angio chest PE protocol CLINICAL HISTORY: ro pe TECHNIQUE: Multidetector row helical CT of the chest was performed with angiographic protocol. Coronal and sagittal reformations were obtained. Coronal and sagittal MIPS were obtained from the axial data set and were submitted for review. Automated dose lowering techniques and/or adjustment according to patient size were utilized for this exam. CT DOSE: 514.41 mGy.cm Comparison: None available at the time of this dictation. FINDINGS: Lungs and pleura: Normal. Heart and pericardium: Heart size is normal. No pericardial effusion. Vessels: No evidence of pulmonary embolism. Mild atherosclerotic disease is seen. Mediastinum and cassie: Unremarkable. Chest wall and lower neck: Unremarkable. Abdomen: A hiatal hernia is seen. Bones: Degenerative changes in the thoracic spine. IMPRESSION: No acute abnormality and in particular no evidence of pulmonary embolus. ACT 112: Negative or not required by law. Electronically signed by: Vj Shelley M.D. 04/05/2023 5:45 PM Code Status & VTE Plan VTE Prophylaxis Plan VTE Prophylaxis will be ordered: Yes Supervising Physician Co-Signing Physician Notes Patient seen and examined, chart reviewed, case discussed with Joshua Salguero MD and I agree with the assessment and plan as above except as otherwise noted Labs and images reviewed 67-year-old male with past medical history of atrial flutter, BPH with LUTS, peripheral artery disease, hypertension, and former tobacco abuse who presented to the ER with concerns of palpitations. He was noted to have a sudden rate of over 200 which was not captured but an EKG showed a SVT with suspected underlying flutter in the 160s, and patient subsequently had converted to a normal rate and with a period of bradycardia. Patient was recommended for admission for palpitations, tach arrhythmia, and concern for tachybradycardia syndrome. Patient will be kept on telemetry, and would benefit Holter monitor if no arrhythmias noted overnight. Resident Activity Tracking Resident Involvement: Resident Care Provided Care Provided: Adult Hospital Medicine
[2023-04-05 20:08] LABS: Appearance Urine Clear (Clear); Bacteria Urine Automated Negative (Negative); Bilirubin Urine Negative (Negative); Blood Urine Negative (Negative); Cast Urine Automated 0 /lpf (0-5); Color Urine Yellow; Glucose Urine UA Negative (Negative); Ketones Urine Negative (Negative); Leukocyte Esterase Urine 2+ (Negative); Nitrite Urine Negative (Negative); Protein Urine Negative (Negative); RBC Urine Automated 0-4 /hpf (0-4); Specific Gravity Urine 1.006 (1.000-1.030); Urobilinogen Urine Negative (Negative)
[2023-04-05] MEDS ORDERED: ACETAMINOPHEN 325 MG TAB PO PRN (20:16)
[2023-04-05] MEDS ORDERED: POLYETHYLENE (MIRALAX) 17 GM PACK PO PRN (20:16)
[2023-04-05] MEDS ORDERED: ONDANSETRON 4 MG OD TAB PO PRN (20:16)
--- NOTE | 2023-04-05 20:41 | Emergency Department Note ---
History of Present Illness General Chief complaint: Cardiac Assessment Time Seen by Provider: 04/05/23 15:53 History of Present Illness Provider complaint: High heart rate 67-year-old male presents emergency department for high heart rate. Patient reports that he feels no better than he did on Wednesday. He states he has been monitoring his heart rate has been going up and down. He states the Ativan helps it but then it goes right back up. He denies any chest pain difficulty breathing nausea vomiting or diarrhea. Patient states he was having difficulty urinating but is now not having any difficulty urinating. Home Medications Medication Instructions Recorded Confirmed Type multivitamin 1 tab PO QAM 12/22/18 04/05/23 History aspirin 81 mg tablet,delayed 81 mg PO DAILY #30 tabs 08/13/22 04/05/23 Rx release (Adult Low Dose Aspirin) atorvastatin 40 mg tablet 40 mg PO DAILY #30 tabs 08/13/22 04/05/23 Rx amlodipine 5 mg-olmesartan 20 mg 1 tab PO DAILY #90 tabs 01/14/23 04/05/23 Rx tablet ascorbic acid (vitamin C) 1,000 mg 1 g PO DAILY 01/14/23 04/05/23 History capsule cholecalciferol (vitamin D3) 25 25 mcg PO DAILY 01/14/23 04/05/23 History mcg (1,000 unit) capsule dutasteride 0.5 mg capsule 0.5 mg PO DAILY #90 caps 02/25/23 04/05/23 Rx tamsulosin 0.4 mg capsule 0.4 mg PO DAILY #30 caps 03/26/23 04/05/23 Rx ciprofloxacin HCl 500 mg tablet 500 mg PO BID #6 tabs 04/02/23 04/05/23 Rx lorazepam 0.5 mg tablet (Ativan) 0.5 mg PO Q8H PRN anxiety #11 tabs 04/02/23 04/05/23 Rx Allergies Allergy/AdvReac Type Severity Reaction Status Date / Time No Known Allergies Allergy Verified 04/05/23 17:15 Past Med/Surg History Medical History Anxiety Surgical History History of arthroscopy of left knee unknown date Hx of vasectomy unknown date History of right inguinal hernia repair unknown date History of colonoscopy 01/06/2016 and 01/10/2019 History of tooth extraction all teeth removed Family History Unknown COPD (chronic obstructive pulmonary disease) Father Family history of diabetes mellitus Myocardial infarction Other No family history of adverse response to anesthesia Denies family history of Ovarian cancer Prostate cancer Breast cancer Colorectal cancer Social History Smoking Status: Former smoker Second Hand Exposure: Yes (parents smoked); Do You Dip or Chew Tobacco: No; Hx Alcohol Use: No Hx Substance Use: No Preferred Language: Polish Communication Ability: Effective Visual Impairment: No Limitations Hearing Ability: Normal Cloak Room Attendant Required: No Beliefs That Will Affect Care: None marital status: Current Living Situation: Spouse current occupational status: retired Feels Safe at Home: Yes Childhood Exposure to Second-Hand Smoke: Yes Dental Care, Regularly: No Physical Activity Frequency: Daily Seatbelt Use: never Sunscreen Use: No Assistive Devices: None Physical Exam Vital Signs Vital Signs - 24 hr 04/05/23 15:50 04/05/23 15:50 04/05/23 15:50 Temperature 37.7 C H Temperature Source Oral Pulse Rate 89 94 H Pulse Rate from SpO2 Sensor 94 H Pulse Rhythm Regular Pulse Strength Normal Respiratory Rate 18 16 Respiratory Effort / Characteristics Non-Labored Respiratory Depth Normal Respiratory Pattern Regular Blood Pressure 149/83 H Blood Pressure Mean 105 Blood Pressure Position Lying Pulse Oximetry 98 100 Oxygen Delivery Method Room Air Room Air Sepsis Recent Fever Within 48 Hours Yes Sepsis New/Unexplained Change in Mental Status No Sepsis Action Taken by Nursing No Action Required 04/05/23 15:52 04/05/23 15:55 04/05/23 16:00 Temperature Temperature Source Pulse Rate 162 H 82 91 H Pulse Rate from SpO2 Sensor 93 H Pulse Rhythm Pulse Strength Respiratory Rate 20 Respiratory Effort / Characteristics Respiratory Depth Respiratory Pattern Blood Pressure Blood Pressure Mean Blood Pressure Position Pulse Oximetry 99 Oxygen Delivery Method Sepsis Recent Fever Within 48 Hours Sepsis New/Unexplained Change in Mental Status Sepsis Action Taken by Nursing 04/05/23 16:10 04/05/23 16:20 04/05/23 16:30 Temperature Temperature Source Pulse Rate 103 H 85 86 Pulse Rate from SpO2 Sensor 93 H 85 85 Pulse Rhythm Pulse Strength Respiratory Rate 16 16 15 Respiratory Effort / Characteristics Respiratory Depth Respiratory Pattern Blood Pressure Blood Pressure Mean Blood Pressure Position Pulse Oximetry 98 99 99 Oxygen Delivery Method Sepsis Recent Fever Within 48 Hours Sepsis New/Unexplained Change in Mental Status Sepsis Action Taken by Nursing 04/05/23 16:40 04/05/23 17:04 04/05/23 17:04 Temperature Temperature Source Pulse Rate 94 H 100 H Pulse Rate from SpO2 Sensor 93 H Pulse Rhythm Pulse Strength Respiratory Rate 21 16 Respiratory Effort / Characteristics Respiratory Depth Respiratory Pattern Blood Pressure 147/76 H Blood Pressure Mean 97 Blood Pressure Position Pulse Oximetry 98 Oxygen Delivery Method Sepsis Recent Fever Within 48 Hours Sepsis New/Unexplained Change in Mental Status Sepsis Action Taken by Nursing 04/05/23 17:30 04/05/23 18:00 Temperature Temperature Source Pulse Rate 83 80 Pulse Rate from SpO2 Sensor 83 81 Pulse Rhythm Pulse Strength Respiratory Rate 15 15 Respiratory Effort / Characteristics Respiratory Depth Respiratory Pattern Blood Pressure Blood Pressure Mean Blood Pressure Position Pulse Oximetry 100 97 Oxygen Delivery Method Sepsis Recent Fever Within 48 Hours Sepsis New/Unexplained Change in Mental Status Sepsis Action Taken by Nursing Physical Exam HENT: Exam performed. - Head: Normocephalic and atraumatic. - Right Ear: External ear normal. No mastoid erythema - Left Ear: External ear normal. No mastoid erythema - Mouth/Throat: The oropharynx is clear and moist. No trismus in the jaw. No dental abscesses or uvula swelling. No oropharyngeal exudate or tonsillar abscesses. EYES: Conjunctivae and EOM are normal. Pupils are equal, round, and reactive to light. Right eye exhibits no discharge. Left eye exhibits no discharge. No scleral icterus. NECK: Normal range of motion. Neck supple. No JVD present. No rigidity. No tracheal deviation and normal range of motion present. CV: Normal rate, regular rhythm, normal heart sounds and intact distal pulses. There is no peripheral edema. Palpable radial pulses bue. PULM/CHEST: Effort normal and breath sounds normal. No respiratory distress. No stridor. He has no wheezes. He has no rales. ABD: The abdomen is soft. There is no tenderness. There is no rebound, no guarding MUSC/SKEL: Normal range of motion. There is no peripheral edema, tenderness or deformity. NEURO: He is alert and oriented to person, place, and time. He has normal strength. No cranial nerve deficit or sensory deficit. Coordination and gait normal. GCS eye subscore is 4. GCS verbal subscore is 5. GCS motor subscore is 6. Cerebellar tests wnl. SKIN: Skin is warm and dry. He is not diaphoretic. PSYCH: Anxious. Course Course 1553: The patient was evaluated in room B10. A complete history and physical exam was performed Cardiac monitoring: An order was placed for continuous cardiac monitoring. The monitor shows a rate of 90 with sinus rhythm interpreted by me EMS reports that the patient was in a tachycardic rhythm that was narrow up into the 170s for a few seconds and then would go back into a sinus rhythm. EKGs that were conducted by nursing initially showed SVT but then the patient went into a sinus tachycardia in the 130s on EKGs and on the monitor his heart rate has improved even more into normal sinus rhythm with a ventricular rate. 1800: Vital signs stable. Patient's heart rate has remained stable after receiving IV fluids and Ativan in the emergency department. Labs and imaging within normal limits. Patient is requesting evaluation by cardiology and urology. [facility] given his intermittent tachyarrhythmias. Administered Medications Discontinued Medications Sodium Chloride (Nss) 1,000 mls @ 999 mls/hr IV .Q1H1M ONE Stop: 04/05/23 17:05 Last Infusion: 04/05/23 17:08 Dose: Infused Documented By: Admin: 04/05/23 16:07 Dose: 999 mls/hr Documented By: SANDY Ioversol (Optiray 320 125ml) 116 ml IV ONCE ONE Stop: 04/05/23 17:00 Last Admin: 04/05/23 17:00 Dose: 116 ml Documented By: ERICA Lorazepam (Lorazepam 1 Mg Tab) 1 mg SL NOW STA Stop: 04/05/23 18:12 Last Admin: 04/05/23 18:14 Dose: 1 mg Documented By: SANDY Medical Decision Making Laboratory Data Attestation: I reviewed the patient's lab results. 04/05/23 16:00 04/05/23 16:00 Lab Results 04/05/23 04/05/23 04/05/23 Range/Units 16:00 16:11 16:41 WBC 8.45 (4.8-10.8) K/ul RBC 3.95 L (4.70-6.10) M/uL Hgb 12.3 L (14.0-18.0) g/dl Hct 36.3 L (42.0-52.0) % MCV 91.9 (80.0-100.0) fL MCH 31.1 (25.0-34.0) pg MCHC 33.9 (32.0-36.0) g/dL RDW Std Deviation 46.9 H (36.4-46.3) fL RDW Coeff of [place] 13.8 (11.5-14.5) % Plt Count 330 (130-400) K/uL MPV 9.4 (9.4-12.4) fL Immature Gran % (Auto) 0.2 % Neut % (Auto) 58.9 % Lymph % (Auto) 26.5 % [place] % (Auto) 13.4 % Eos % (Auto) 0.5 % Baso % (Auto) 0.5 % Neut # (Auto) 4.98 (1.40-6.50) K/uL Lymph # (Auto) 2.24 (1.20-3.40) K/uL [place] # (Auto) 1.13 H (0.11-0.59) K/uL Eos # (Auto) 0.04 (0.00-0.50) K/uL Baso # (Auto) 0.04 (0.00-0.20) K/uL Immature Gran # (Auto) 0.02 (0.01-0.20) K/uL PT Cancelled INR Cancelled APTT Cancelled PTT Ratio Cancelled D-Dimer Cancelled Sodium 134 L (136-145) mmol/L Potassium 4.1 (3.5-5.1) mmol/L Chloride 102 (98-107) mmol/L Carbon Dioxide 24 (21-32) mmol/L Anion Gap 8 (3-11) BUN 9 (6-23) mg/dl Creatinine 0.73 (0.6-1.4) mg/dl Est Cr Clr Drug Dosing 89.6 ml/min Est GFR ( Amer) 111.2 ml/min Est GFR (Non-Af Amer) 96.0 ml/min BUN/Creatinine Ratio 12.3 (10-20) Glucose 112 H (70-99(Fasting)) mg/dl Lactate 1.0 (0.4-2.0) mmol/L Calcium 9.8 (8.6-10.3) mg/dl Magnesium 2.1 (1.7-2.4) mg/dl Total Bilirubin 0.3 (0.2-1.0) mg/dl AST 22 (13-39) U/L ALT 14 (7-52) U/L Alkaline Phosphatase 54 (34-104) U/L Troponin I High Sens 10.8 (0-20) pg/ml Total Protein 8.2 (6.0-8.3) gm/dl Albumin 4.3 (3.4-5.0) gm/dl Globulin 3.9 (2.5-4.0) gm/dl Albumin/Globulin Ratio 1.1 (0.9-2) TSH 1.185 (0.300-4.500) uIu/ml Urine Color Yellow Urine Appearance Clear (Clear) Urine pH 7.0 (4.5-7.5) Ur Specific [place] 1.006 (1.000-1.030) Urine Protein Negative (Negative) Urine Glucose (UA) Negative (Negative) Urine Ketones Negative (Negative) Urine Blood Negative (Negative) Urine Nitrite Negative (Negative) Urine Bilirubin Negative (Negative) Urine Urobilinogen Negative (Negative) Ur Leukocyte Esterase 2+ H (Negative) Urine WBC (Auto) 5-10 H (0-5) /hpf Urine RBC (Auto) 0-4 (0-4) /hpf U Hyaline Cast (Auto) 0 (0-5) /lpf U Epithel Cells (Auto) 10-20 H (0-5) /lpf Urine Bacteria (Auto) Negative (Negative) 04/05/23 Range/Units 18:21 WBC (4.8-10.8) K/ul RBC (4.70-6.10) M/uL Hgb (14.0-18.0) g/dl Hct (42.0-52.0) % MCV (80.0-100.0) fL MCH (25.0-34.0) pg MCHC (32.0-36.0) g/dL RDW Std Deviation (36.4-46.3) fL RDW Coeff of [place] (11.5-14.5) % Plt Count (130-400) K/uL MPV (9.4-12.4) fL Immature Gran % (Auto) % Neut % (Auto) % Lymph % (Auto) % [place] % (Auto) % Eos % (Auto) % Baso % (Auto) % Neut # (Auto) (1.40-6.50) K/uL Lymph # (Auto) (1.20-3.40) K/uL [place] # (Auto) (0.11-0.59) K/uL Eos # (Auto) (0.00-0.50) K/uL Baso # (Auto) (0.00-0.20) K/uL Immature Gran # (Auto) (0.01-0.20) K/uL PT 11.1 INR 1.0 APTT 30 PTT Ratio 1.1 D-Dimer 470 Sodium (136-145) mmol/L Potassium (3.5-5.1) mmol/L Chloride (98-107) mmol/L Carbon Dioxide (21-32) mmol/L Anion Gap (3-11) BUN (6-23) mg/dl Creatinine (0.6-1.4) mg/dl Est Cr Clr Drug Dosing ml/min Est GFR ( Amer) ml/min Est GFR (Non-Af Amer) ml/min BUN/Creatinine Ratio (10-20) Glucose (70-99(Fasting)) mg/dl Lactate (0.4-2.0) mmol/L Calcium (8.6-10.3) mg/dl Magnesium (1.7-2.4) mg/dl Total Bilirubin (0.2-1.0) mg/dl AST (13-39) U/L ALT (7-52) U/L Alkaline Phosphatase (34-104) U/L Troponin I High Sens (0-20) pg/ml Total Protein (6.0-8.3) gm/dl Albumin (3.4-5.0) gm/dl Globulin (2.5-4.0) gm/dl Albumin/Globulin Ratio (0.9-2) TSH (0.300-4.500) uIu/ml Urine Color Urine Appearance (Clear) Urine pH (4.5-7.5) Ur Specific [place] (1.000-1.030) Urine Protein (Negative) Urine Glucose (UA) (Negative) Urine Ketones (Negative) Urine Blood (Negative) Urine Nitrite (Negative) Urine Bilirubin (Negative) Urine Urobilinogen (Negative) Ur Leukocyte Esterase (Negative) Urine WBC (Auto) (0-5) /hpf Urine RBC (Auto) (0-4) /hpf U Hyaline Cast (Auto) (0-5) /lpf U Epithel Cells (Auto) (0-5) /lpf Urine Bacteria (Auto) (Negative) Imaging Data Attestation: I personally reviewed and interpreted this imaging study as follows: My Impression: Chest x-ray negative. Airway clear. No pneumothorax. No consolidation. No cardiomegaly or cephalization.. No free air under the diaphragm. No fractures of the skeletal structures. Radiologist's Impression: Chest X-Ray 04/05/23 15:50 XR chest 1V portable CLINICAL HISTORY: Dysrhythmia TECHNIQUE: Single frontal radiograph of the chest was obtained. Comparison: Comparison is made to chest radiograph 04/02/2023 FINDINGS: No lines and tubes are seen. Calcified aortic knob is seen. The lungs are clear. No evidence of pleural effusion or pneumothorax. IMPRESSION: No acute chest disease. ACT 112: Negative or not required by law. Electronically signed by: Vj Shelley M.D. 04/05/2023 4:38 PM Chest CTA 04/05/23 16:27 CT angio chest PE protocol CLINICAL HISTORY: ro pe TECHNIQUE: Multidetector row helical CT of the chest was performed with angiographic protocol. Coronal and sagittal reformations were obtained. Coronal and sagittal MIPS were obtained from the axial data set and were submitted for review. Automated dose lowering techniques and/or adjustment according to patient size were utilized for this exam. CT DOSE: 514.41 mGy.cm Comparison: None available at the time of this dictation. FINDINGS: Lungs and pleura: Normal. Heart and pericardium: Heart size is normal. No pericardial effusion. Vessels: No evidence of pulmonary embolism. Mild atherosclerotic disease is seen. Mediastinum and cassie: Unremarkable. Chest wall and lower neck: Unremarkable. Abdomen: A hiatal hernia is seen. Bones: Degenerative changes in the thoracic spine. IMPRESSION: No acute abnormality and in particular no evidence of pulmonary embolus. ACT 112: Negative or not required by law. Electronically signed by: Vj Shelley M.D. 04/05/2023 5:45 PM ECG Data Attestation: I personally reviewed and interpreted this ECG as follows: Additional Comments: EKG 1 at 1547: SVT with a rate of 164. QRS [address] elevation or ST depression. EKG #2 at 1548: On this EKG it appears that the patient started in SVT with a ventricular rate in the 150s and then converted into a normal sinus rhythm with a ventricular rate of 80, this occurred without pharmacological intervention. No ST elevation or ST depression. [facility] Narrative 1553: The patient was evaluated in room B10. A complete history and physical exam was performed Cardiac monitoring: An order was placed for continuous cardiac monitoring. The monitor shows a rate of 90 with sinus rhythm interpreted by co EMS reports that the patient was in a tachycardic rhythm that was narrow up into the 170s for a few seconds and then would go back into a sinus rhythm. EKGs that were conducted by nursing initially showed SVT but then the patient went into a sinus tachycardia in the 130s on EKGs and on the monitor his heart rate has improved even more into normal sinus rhythm with a ventricular rate. 1800: Vital signs stable. Patient's heart rate has remained stable after receiving IV fluids and Ativan in the emergency department. Labs and imaging within normal limits. Patient is requesting evaluation by cardiology and urology. [facility] given his intermittent tachyarrhythmias. Impression & Plan Palpitations, Anxiety Discharge Plan Visit Data Chief Complaint: Cardiac Assessment ED Provider: Caleb Augustin Discharge Problem: Palpitations, Anxiety Patient Disposition: Admitted As Inpatient Discharge Instructions Interventions: ED Discharge Assessment Last Done: 04/05/23 20:16
[2023-04-06] MEDS: LORazepam 0.5 MG TAB PO PRN ×3 (00:20→21:42)
[2023-04-06 04:18] LABS: Basophils # (auto) 0.05 K/uL (0.00-0.20); Basophils % (auto) 0.6 %; Eosinophils # (auto) 0.12 K/uL (0.00-0.50); Eosinophils % (auto) 1.4 %; Hematocrit (blood only) 34.1 % (42.0-52.0); Hemoglobin 11.3 g/dl (14.0-18.0); Immature Granulocytes # (auto) 0.03 K/uL (0.01-0.20); Immature Granulocytes % (auto) 0.4 %; Lymphocytes # (auto) 2.72 K/uL (1.20-3.40); Mean Corpuscular Hemoglobin 30.5 pg (25.0-34.0); Mean Corpuscular Hgb Conc 33.1 g/dL (32.0-36.0); Mean Corpuscular Volume 92.2 fL (80.0-100.0); Mean Platelet Volume 9.5 fL (9.4-12.4); Monocytes # (auto) 1.13 K/uL (0.11-0.59); Monocytes % (auto) 13.3 %; Neutrophils # (auto) 4.46 K/uL (1.40-6.50); Neutrophils % (auto) 52.3 %; Platelet Count 308 K/uL (130-400); RDW Coefficient of Variation 13.7 % (11.5-14.5); RDW Standard Deviation 46.8 fL (36.4-46.3); White Blood Count 8.51 K/ul (4.8-10.8)
[2023-04-06 04:29] LABS: BUN Creatinine Ratio 18.2 (10-20); Calcium 8.8 mg/dl (8.6-10.3); Creatinine Clr Calc Pharmacy 99.1 ml/min; Magnesium 2.1 mg/dl (1.7-2.4); Potassium 3.9 mmol/L (3.5-5.1)
[2023-04-06] MEDS: ASPIRIN 81 MG ECTAB PO SCH (08:05)
[2023-04-06] MEDS: amLODIPine BESYLATE 5 MG TAB PO SCH (08:05)
[2023-04-06] MEDS: FINASTERIDE 5 MG TAB PO SCH (08:06)
[2023-04-06] MEDS: TAMSULOSIN HCL 0.4 MG CAP PO SCH (08:06)
[2023-04-06] MEDS: ATORVASTATIN 40 MG TAB PO SCH (08:06)
[2023-04-06] MEDS: LOSARTAN POTASSIUM 50 MG TAB PO SCH (08:06)
--- NOTE | 2023-04-06 09:01 | Hospitalist Progress Note ---
Date of Service April 06, 2023 Assessment & Plan (1) Atrial flutter: Plan: 67 yo male with PMHx of anxiety, bladder diverticulum, BPH w/ LUTS, anemia, carotid stenosis s/p carotid endarterectomy, PAD, and HTN. #Atrial Flutter -Cardiology saw patient today: likely aflutter, no role for rate control, recommend eliquis vs xarelto based on insurance coverage -Will continue to monitor on tele -Symptoms could stem from undiagnosed arrhythmia. No obvious signs of infection. No electrolyte abnormality. -echo pending -monitor on tele -cardiology consulted -may require outpatient holter #UTI -Ciprofloxacin 500mg x 3 days 04/02-04/04 -Given arrhythmia and missed doses, will switch to Bactrim DS BID for full 7 days additional Urine cx grew Enterobacter, however, this could also represent contaminant. #BPH w/ LUTS #Bladder Diverticulum -follows with [place] [facility] -cont. tamsulosin, dutasteride #Carotid stenosis s/p endarterectomy #PAD -endarterectomy Fall 2022 - needs outpatient f/u with vascular surgeon ([facility]) -cont. asa, statin #HTN -cont. amlodipine-olmesartan #Anxiety -ativan prn #HLD -cont. statin DVT ppx: SCDs FEN/GI: HH Code Status: Full Dispo: Med Tele (2) Anxiety: (3) Bladder diverticulum: (4) Benign localized prostatic hyperplasia with lower urinary tract symptoms (LUTS): (5) Anemia: (6) Carotid stenosis: (7) PAD (peripheral artery disease): (8) Hypertension: Admission and Anticipated Discharge Date Admission Date: April 05, 2023 Supervising Physician Co-Signing Physician Notes Attending attestation Pt seen and examined in concert with Dr. Gardner. In agreement with the documented findings as noted in the resident documentation with any exceptions or additions as noted here. Improved fatigue and heart racing sensation without recurrence of bladder symptoms at this time. On examination, S1/S2 nl RRR no MCG. CTAB. Abd NT/ND BS+ve Atrial flutter/AF - cardiology consult - start apixaban, monitor on telemetry UTI - urology aware - continue abx therapy (ciprofloxacin) and obtain bladder scan per recommendation Else see resident documentation as noted. Subjective No acute events overnight. No longer feeling symptomatic. Review of Systems Review of Systems: reviewed, per HPI Physical Exam Physical Exam: General: patient resting comfortably, NAD, non-toxic in appearance, answers questions appropriately and follows commands. Skin: warm, dry, intact HEENT: NC/AT, anicteric sclera, conjunctiva without injection, moist mucus m embranes Heart: +S1/S2, irregular, no m/r/g Lungs: equal air entry bilaterally, no rales/rhonchi/wheezes Abd: +BS, soft, NT/ND Ext: warm, no clubbing/cyanosis or edema Neuro: nonfocal, speech intact, no facial droop, moving all extremities on command. Results & Data Results & Data Vital Signs (Past 12 Hours) Vital Signs Pulse Pulse Resp BP BP Pulse Ox Pulse Ox 04/06/23 07:08 69 04/06/23 06:00 55 L 16 113/65 97 04/06/23 04:01 63 17 118/65 96 04/06/23 02:00 61 17 129/73 96 04/06/23 00:44 67 17 129/71 96 04/05/23 23:06 73 04/05/23 22:00 78 16 147/76 H 96 04/05/23 21:00 96 O2 Del Method O2 Del Method O2 Flow Rate 04/06/23 07:08 04/06/23 06:00 Room Air 04/06/23 04:01 Room Air 04/06/23 02:00 Room Air 04/06/23 00:44 Room Air 04/05/23 23:06 04/05/23 22:00 Room Air 04/05/23 21:00 Room Air 0
--- NOTE | 2023-04-06 10:09 | XCELERA ---
[id number] \\[id number]
--- NOTE | 2023-04-06 10:43 | Cardiology Consultation ---
Date of Consultation April 06, 2023 Assessment & Plan (1) Atrial flutter: (2) Mitral regurgitation: Plan 1. SVT: I think this represents an atrial flutter. It is only unusual in the sense that it terminated spontaneously. Less likely would be a reentrant SVT. Did discuss vagal maneuvers with the patient to try at home if he has recurrences. We also discussed options for permanent cure. This would involve catheter based therapy which could certainly be performed at our institution at his convenience. He wishes to think over his options with his . I will schedule him some follow-up in our clinic to determine if he wants to pursue more permanent treatment. Given the very small elevation risk of stroke associated with atrial flutter he would benefit from being on systemic anticoagulation. I think given his normal renal function Eliquis 5 mg twice a day or Xarelto 20 mg daily would both be acceptable. I do not think he requires any additional medication for the SVT. 2. Mitral regurgitation: Mild. This can be followed over time. History of Present Illness Reason for Consultation: Atrial flutter Requesting Physician: Jose M Attending Physician: Cheng Borges MD History of Present Illness The patient is a 67-year-old gentleman with a history of peripheral vascular disease having undergone right carotid endarterectomy and December of 2022. He has no known cardiac disease. Presented to the emergency room yesterday for symptoms of palpitations. He recognized this as a fast heartbeat. It did produce some dizziness and presyncopal symptoms. The episode itself was fairly longstanding in duration and he called an ambulance and was transported to the emergency room. He was discovered to have an atrial flutter. This seems to have resolved spontaneously. He did not report any associated chest pain. He states that he had 1 additional episode similar symptom recently that also lasted approximately an hour before resolving on its own. Generally speaking he reports being active individual. However since his surgery he has been less active. Did not report any symptoms associated with light activity around the house or activities of daily living. Specifically, no exertional chest pain or dyspnea. No dizziness. No history of syncope. Allergies Allergy/AdvReac Type Severity Reaction Status Date / Time No Known Allergies Allergy Verified 04/05/23 17:15 Home Medications Medication Instructions Recorded Confirmed Type multivitamin 1 tab PO QAM 12/22/18 04/05/23 History aspirin 81 mg tablet,delayed 81 mg PO DAILY #30 tabs 08/13/22 04/05/23 Rx release (Adult Low Dose Aspirin) atorvastatin 40 mg tablet 40 mg PO DAILY #30 tabs 08/13/22 04/05/23 Rx amlodipine 5 mg-olmesartan 20 mg 1 tab PO DAILY #90 tabs 01/14/23 04/05/23 Rx tablet ascorbic acid (vitamin C) 1,000 mg 1 g PO DAILY 01/14/23 04/05/23 History capsule cholecalciferol (vitamin D3) 25 25 mcg PO DAILY 01/14/23 04/05/23 History mcg (1,000 unit) capsule dutasteride 0.5 mg capsule 0.5 mg PO DAILY #90 caps 02/25/23 04/05/23 Rx tamsulosin 0.4 mg capsule 0.4 mg PO DAILY #30 caps 03/26/23 04/05/23 Rx ciprofloxacin HCl 500 mg tablet 500 mg PO BID #6 tabs 04/02/23 04/05/23 Rx lorazepam 0.5 mg tablet (Ativan) 0.5 mg PO Q8H PRN anxiety #11 tabs 04/02/23 04/05/23 Rx Patient History Medical History Anxiety Surgical History History of arthroscopy of left knee unknown date Hx of vasectomy unknown date History of right inguinal hernia repair unknown date History of colonoscopy 01/06/2016 and 01/10/2019 History of tooth extraction all teeth removed Family History Unknown COPD (chronic obstructive pulmonary disease) Father Family history of diabetes mellitus Myocardial infarction Other No family history of adverse response to anesthesia Denies family history of Ovarian cancer Prostate cancer Breast cancer Colorectal cancer Social History Smoking Status: Never smoker Second Hand Exposure: No; Do You Dip or Chew Tobacco: No; Tobacco Cessation Education Requested by Patient: No Hx Alcohol Use: No Hx Substance Use: No Preferred Language: [place] Communication Ability: Effective Visual Impairment: No Limitations Hearing Ability: Normal Manager Laboratory Required: No Beliefs That Will Affect Care: None marital status: Current Living Situation: Spouse current occupational status: retired Other Information That Helps Us Care for You: No Feels Safe at Home: Yes Safety Concerns: Feels Safe At This Time Childhood Exposure to Second-Hand Smoke: Yes Dental Care, Regularly: No Physical Activity Frequency: Daily Seatbelt Use: never Sunscreen Use: No Assistive Devices: None Review of Systems Review of Systems: Per HPI. Some lower urinary tract symptoms. Anxious Physical Exam Physical Exam: The patient is alert and oriented. Mood and affect appeared normal. He answered all questions appropriately. HEENT: Pupils are equal and reactive to light and accommodation. Extraocular movements are intact. The sclerae are anicteric. Neuro: Cranial nerves intact Lungs: Clear to auscultation bilaterally. He has good air movement without use of accessory muscles. No rales wheezes or rhonchi. Cardiac: Heart demonstrates a regular rate and rhythm. Normal S1 and S2. No murmurs on examination. Pulses: The patient has palpable radial pulses bilaterally that are equal in intensity Extremities: There was no evidence of hypoperfusion. There is no cyanosis or clubbing. There is no edema. Skin: I did not appreciate any rashes on examination today. Results & Data Vital Signs (Past 12 Hours) Vital Signs Pulse Resp BP Pulse Ox O2 Del Method 04/06/23 07:08 69 04/06/23 06:00 55 L 16 113/65 97 Room Air 04/06/23 04:01 63 17 118/65 96 Room Air 04/06/23 02:00 61 17 129/73 96 Room Air 04/06/23 00:44 67 17 129/71 96 Room Air 04/05/23 23:06 73 Laboratory Results Abnormal Lab Results 04/05/23 04/05/23 04/05/23 16:00 16:11 16:41 WBC 8.45 RBC 3.95 L Hgb 12.3 L Hct 36.3 L MCV 91.9 MCH 31.1 MCHC 33.9 RDW Std Deviation 46.9 H RDW Coeff of [place]he[place] 13.8 Plt Count 330 MPV 9.4 Immature Gran % (Auto) 0.2 Neut % (Auto) 58.9 Lymph % (Auto) 26.5 Robertson % (Auto) 13.4 Eos % (Auto) 0.5 Baso % (Auto) 0.5 Neut # (Auto) 4.98 Lymph # (Auto) 2.24 Robertson # (Auto) 1.13 H Eos # (Auto) 0.04 Baso # (Auto) 0.04 Immature Gran # (Auto) 0.02 PT Cancelled INR Cancelled APTT Cancelled PTT Ratio Cancelled D-Dimer Cancelled Sodium 134 L Potassium 4.1 Chloride 102 Carbon Dioxide 24 Anion Gap 8 BUN 9 Creatinine 0.73 Est Cr Clr Drug Dosing 89.6 Est GFR ( Amer) 111.2 Est GFR (Non-Af Amer) 96.0 BUN/Creatinine Ratio 12.3 Glucose 112 H Lactate 1.0 Calcium 9.8 Magnesium 2.1 Total Bilirubin 0.3 AST 22 ALT 14 Alkaline Phosphatase 54 Troponin I High Sens 10.8 Total Protein 8.2 Albumin 4.3 Globulin 3.9 Albumin/Globulin Ratio 1.1 TSH 1.185 Urine Color Yellow Urine Appearance Clear Urine pH 7.0 Ur Specific Freer 1.006 Urine Protein Negative Urine Glucose (UA) Negative Urine Ketones Negative Urine Blood Negative Urine Nitrite Negative Urine Bilirubin Negative Urine Urobilinogen Negative Ur Leukocyte Esterase 2+ H Urine WBC (Auto) 5-10 H Urine RBC (Auto) 0-4 U Hyaline Cast (Auto) 0 U Epithel Cells (Auto) 10-20 H Urine Bacteria (Auto) Negative 04/05/23 04/06/23 18:21 03:20 WBC 8.51 RBC 3.70 L Hgb 11.3 L Hct 34.1 L MCV 92.2 MCH 30.5 MCHC 33.1 RDW Std Deviation 46.8 H RDW Coeff of Ashely 13.7 Plt Count 308 MPV 9.5 Immature Gran % (Auto) 0.4 Neut % (Auto) 52.3 Lymph % (Auto) 32.0 Robertson % (Auto) 13.3 Eos % (Auto) 1.4 Baso % (Auto) 0.6 Neut # (Auto) 4.46 Lymph # (Auto) 2.72 Robertson # (Auto) 1.13 H Eos # (Auto) 0.12 Baso # (Auto) 0.05 Immature Gran # (Auto) 0.03 PT 11.1 INR 1.0 APTT 30 PTT Ratio 1.1 D-Dimer 470 Sodium 137 Potassium 3.9 Chloride 106 Carbon Dioxide 24 Anion Gap 7 BUN 12 Creatinine 0.66 Est Cr Clr Drug Dosing 99.1 Est GFR ( Amer) 116.0 Est GFR (Non-Af Amer) 100.0 BUN/Creatinine Ratio 18.2 Glucose 91 Lactate Calcium 8.8 Magnesium 2.1 Total Bilirubin AST ALT Alkaline Phosphatase Troponin I High Sens Total Protein Albumin Globulin Albumin/Globulin Ratio TSH Urine Color Urine Appearance Urine pH Ur Specific Freer Urine Protein Urine Glucose (UA) Urine Ketones Urine Blood Urine Nitrite Urine Bilirubin Urine Urobilinogen Ur Leukocyte Esterase Urine WBC (Auto) Urine RBC (Auto) U Hyaline Cast (Auto) U Epithel Cells (Auto) Urine Bacteria (Auto) Diagnostic Findings Dated 04/06/2023: Normal LV systolic function with ejection fraction 60-65%. Stage I diastolic dysfunction. Mild mitral regurgitation. ECG Additional Comments: Admission reveals a narrow complex tachycardia suggestive of atrial flutter. PG Care Time/CCT Total # of Minutes Spent Total Time Spent with Patient: Total time spent is greater than 50% in coordination of care (as documented) at patient's floor/unit and/or counseling patient: Coding Level of Care Code 19669 INT INP/OBS CARE 3/75MIN Diagnoses Atrial flutter I48.92 Mitral regurgitation I34.0
--- NOTE | 2023-04-06 12:16 | Electrocardiogram Report ---
Test Reason : Blood Pressure : / mmHG Vent. Rate : 132 BPM Atrial Rate : 132 BPM P-R Int : 138 ms QRS Dur : 078 ms QT Int : 296 ms P-R-T Axes : 000 -31 045 degrees QTc Int : 438 ms Atrial flutter converting to sinus rhythm Left axis deviation Abnormal ECG When compared with ECG of 02-APR-2023 17:43, QRS axis Shifted left Confirmed by Cheng Menezes ([id number]) on 04/06/2023 12:15:52 PM Referred By: Saran Song Confirmed By:Saran Menezes
[2023-04-06] MEDS ORDERED: SULFAMETHOXAZOLE/TRIMETHOPRIM DS 800/160MG TAB PO ONE (15:05)
[2023-04-06] MEDS: APIXABAN 5 MG TABLET PO SCH (20:02)
[2023-04-06] MEDS ORDERED: CIPROFLOXACIN 500 MG TAB PO SCH (21:00)
[2023-04-07 04:41] LABS: Hematocrit (blood only) 33.7 % (42.0-52.0); Hemoglobin 11.5 g/dl (14.0-18.0); Mean Corpuscular Hemoglobin 31.2 pg (25.0-34.0); Mean Corpuscular Hgb Conc 34.1 g/dL (32.0-36.0); Mean Corpuscular Volume 91.3 fL (80.0-100.0); Mean Platelet Volume 9.1 fL (9.4-12.4); Platelet Count 325 K/uL (130-400); RDW Standard Deviation 47.1 fL (36.4-46.3); Red Blood Count 3.69 M/uL (4.70-6.10); White Blood Count 8.04 K/ul (4.8-10.8)
[2023-04-07 05:15] LABS: Albumin Level 3.7 gm/dl (3.4-5.0); Bilirubin,Total 0.4 mg/dl (0.2-1.0); Calcium 8.9 mg/dl (8.6-10.3); Potassium 3.7 mmol/L (3.5-5.1)
[2023-04-07 05:21] LABS: Albumin Globulin Ratio 1.1 (0.9-2); BUN Creatinine Ratio 14.3 (10-20); Creatinine Clr Calc Pharmacy 84.3 ml/min; Est GFR (African American) 108.8 ml/min; Est GFR (Non-African American) 93.9 ml/min; Globulin 3.5 gm/dl (2.5-4.0); Total Protein 7.2 gm/dl (6.0-8.3)
[2023-04-07] MEDS: ATORVASTATIN 40 MG TAB PO SCH (07:36)
[2023-04-07] MEDS: amLODIPine BESYLATE 5 MG TAB PO SCH (07:36)
[2023-04-07] MEDS: FINASTERIDE 5 MG TAB PO SCH (07:36)
[2023-04-07] MEDS: ASPIRIN 81 MG ECTAB PO SCH (07:36)
[2023-04-07] MEDS: LOSARTAN POTASSIUM 50 MG TAB PO SCH (07:37)
[2023-04-07] MEDS: TAMSULOSIN HCL 0.4 MG CAP PO SCH (07:37)
[2023-04-07] MEDS ORDERED: dilTIAZem HCl 5 MG/ML 5 ML VIAL IV STA ×2 (09:37→10:14)
[2023-04-07] MEDS: SULFAMETHOXAZOLE/TRIMETHOPRIM DS 800/160MG TAB PO SCH ×2 (10:16→20:03)
[2023-04-07] MEDS: APIXABAN 5 MG TABLET PO SCH ×2 (10:16→20:03)
[2023-04-07] MEDS ORDERED: STAT IV Infusion **Titration per Protocol STA (10:20)
[2023-04-07] MEDS: dilTIAZem HCL 125 MG in DEXTROSE 5% 100 ML IV SCH ×2 (10:37→22:11)
--- NOTE | 2023-04-07 12:49 | Urology Consultation ---
Date of Consultation April 07, 2023 Assessment & Plan (1) Urinary retention: (2) Acute UTI: (3) Bladder diverticulum: (4) Benign localized prostatic hyperplasia with lower urinary tract symptoms (LUTS): Plan 67yo M admitted for evaluation of atrial flutter. Urology consulted for urinary retention. Hx of BPH, urinary retention, and right-sided bladder diverticulum - CTAP 04/02 reviewed - Distended bladder with thickened/trabeculated wall, right-sided bladder diverticulum, slight b/l hydronephrosis possibly due to bladder distention/chronic outlet obstruction. - Afebrile, labs reviewed - no leukocytosis and normal renal function. - Urine culture 04/02 grew Enterobacter. On oral Bactrim. - Pt was bladder scanned for PVR of >500ml today. - Discussed incomplete emptying in the setting of infection. Also discussed that his bladder diverticulum may be contributing to both. - We discussed recommendation for Nails catheter placement for bladder decompression given elevated PVR and UTI. Pt declined. Risks of this discussed. - He prefers to monitor ability to void and postvoid residuals for now. Again discussed that our recommendation would remain the same for catheter placement with elevated PVR/worsening retention. - Continue antibiotics. - Continue tamsulosin and dutasteride. - He is scheduled for outpatient follow-up with urology on 04/13/2023 and prefers to keep as scheduled for now. - We also discussed outpatient cystoscopy for further evaluation of the bladder and prostate, he will consider. - Urology will follow peripherally. Please call with any additional questions/concerns. History of Present Illness Attending Physician: Cheng Borges MD History of Present Illness 67 yo male with PMHx of anxiety, bladder diverticulum, BPH w/ LUTS, anemia, carotid stenosis s/p carotid endarterectomy, PAD, and HTN who was seen in the ED on 04/02/23 for chills and dysuria. Was noted to be in afib/flutter at that time. A urine culture was collected. CT abd pelvis imaging demonstrated a distended urinary bladder with thickened trabeculated wall suggesting chronic outlet obstruction, right sided bladder diverticulum, and slight bilateral hydronephrosis L >R with no obvious stones which could be due to bladder distention/chronic outlet obstruction. He was given IV fluids and Ativan with resolution of symptoms. Discharged on Ciprofloxacin. Urine culture finalized with Enterobacter, sensitive to Ciprofloxacin. He returned to the ED on 04/05/2023 with complaints of elevated heart rate and ill feelings. He is admitted to medicine service for evaluation of atrial flutter. Urology asked to evaluate patient due to urinary retention. CT abdomen pelvis 04/02/23- 1. Urinary bladder is distended with thickened, trabeculated wall suggesting chronic bladder outlet obstruction. There is a right-sided bladder diverticulum containing some layering density, which could represent debris or possibly hemorrhage. Recommend correlation with urinalysis to evaluate for hematuria and/or evidence of urinary tract infection. 2. Slight bilateral hydroureteronephrosis, left greater than right. No radiopaque stones. This could reflect physiologic distention due to bladder distention/chronic low-grade bladder outlet obstruction. Patient with a known history of BPH, urinary retention, bladder diverticulum. Was seen in the urology clinic on 02/25/[address] Song for follow-up of urinary retention. Passed a voiding trial at that time. Started on dual therapy with tamsulosin and dutasteride. Currently scheduled for f/u in the urology clinic next week 04/13. Patient examined at bedside in the ED. Awake, resting in bed on arrival. No acute distress. Patient states he is voiding spontaneously and feels he is emptying his bladder well. He does not wish to have a Nails catheter placed at this time due to current issues with heart rate/atrial flutter. Denies hematuria or dysuria. Denies fever or chills. Denies suprapubic or flank pain. No additional concerns at time of exam. Allergies Allergy/AdvReac Type Severity Reaction Status Date / Time No Known Allergies Allergy Verified 04/05/23 17:15 Home Medications Medication Instructions Recorded Confirmed Type multivitamin 1 tab PO QAM 12/22/18 04/05/23 History aspirin 81 mg tablet,delayed 81 mg PO DAILY #30 tabs 08/13/22 04/05/23 Rx release (Adult Low Dose Aspirin) atorvastatin 40 mg tablet 40 mg PO DAILY #30 tabs 08/13/22 04/05/23 Rx amlodipine 5 mg-olmesartan 20 mg 1 tab PO DAILY #90 tabs 01/14/23 04/05/23 Rx tablet ascorbic acid (vitamin C) 1,000 mg 1 g PO DAILY 01/14/23 04/05/23 History capsule cholecalciferol (vitamin D3) 25 25 mcg PO DAILY 01/14/23 04/05/23 History mcg (1,000 unit) capsule dutasteride 0.5 mg capsule 0.5 mg PO DAILY #90 caps 02/25/23 04/05/23 Rx tamsulosin 0.4 mg capsule 0.4 mg PO DAILY #30 caps 03/26/23 04/05/23 Rx ciprofloxacin HCl 500 mg tablet 500 mg PO BID #6 tabs 04/02/23 04/05/23 Rx lorazepam 0.5 mg tablet (Ativan) 0.5 mg PO Q8H PRN anxiety #11 tabs 04/02/23 04/05/23 Rx apixaban 5 mg tablet (Eliquis) 5 mg PO BID 30 days #60 tabs 04/06/23 Rx rivaroxaban 20 mg tablet (Xarelto) 20 mg PO DAILY 30 days #30 tabs 04/06/23 Rx Patient History Medical History Anxiety Surgical History History of arthroscopy of left knee unknown date Hx of vasectomy unknown date History of right inguinal hernia repair unknown date History of colonoscopy 01/06/2016 and 01/10/2019 History of tooth extraction all teeth removed Family History Unknown COPD (chronic obstructive pulmonary disease) Father Family history of diabetes mellitus Myocardial infarction Other No family history of adverse response to anesthesia Denies family history of Ovarian cancer Prostate cancer Breast cancer Colorectal cancer Social History Smoking Status: Never smoker Second Hand Exposure: No; Do You Dip or Chew Tobacco: No; Hx Alcohol Use: No Hx Substance Use: No Preferred Language: [place] Communication Ability: Effective Visual Impairment: No Limitations Hearing Ability: Normal Analytical Research Program Manager Required: No Beliefs That Will Affect Care: None marital status: Current Living Situation: Spouse current occupational status: retired Feels Safe at Home: Yes Childhood Exposure to Second-Hand Smoke: Yes Dental Care, Regularly: No Physical Activity Frequency: Daily Seatbelt Use: never Sunscreen Use: No Assistive Devices: None Review of Systems Review of Systems: All systems reviewed & are unremarkable except as noted in HPI & below Physical Exam Constitutional: well developed and well nourished; no acute distress Neck: normal visual inspection Respiratory: no respiratory distress and no labored breathing Cardiovascular: Rate/Rhythm: + tachycardic Gastrointestinal (Abdomen): Inspection/Auscultation: abdomen not distended Percussion/Palpation: abdomen soft; abdomen nontender Musculoskeletal: Head/Neck/Chest: normocephalic Neurologic: moves all extremities and awake Psychiatric: Orientation: alert, oriented x 3 and cooperative Affect: + anxious affect Results & Data Vital Signs (Past 12 Hours) Vital Signs Temp Pulse Pulse Pulse Resp BP BP 04/07/23 12:20 107 H 16 119/81 04/07/23 11:07 37.2 C 133 H 16 112/91 04/07/23 10:45 108/77 04/07/23 10:45 141 H 16 04/07/23 10:30 113 H 15 04/07/23 10:30 103/67 04/07/23 10:15 100/65 04/07/23 10:15 125 H 13 04/07/23 10:00 103/60 04/07/23 10:00 131 H 14 04/07/23 09:45 147 H 17 04/07/23 09:45 105/78 04/07/23 09:30 157 H 21 04/07/23 09:13 175 H 24 04/07/23 09:13 166/90 H 04/07/23 09:03 190 H 04/07/23 08:30 81 18 04/07/23 08:00 91 H 17 04/07/23 07:27 82 04/07/23 07:08 36.5 C 88 18 148/78 H 04/07/23 03:31 36.5 C 81 20 146/80 H Pulse Ox O2 Del Method 04/07/23 12:20 98 Room Air 04/07/23 11:07 96 Room Air 04/07/23 10:45 04/07/23 10:45 04/07/23 10:30 04/07/23 10:30 04/07/23 10:15 04/07/23 10:15 04/07/23 10:00 04/07/23 10:00 96 Room Air 04/07/23 09:45 95 Room Air 04/07/23 09:45 04/07/23 09:30 04/07/23 09:13 04/07/23 09:13 04/07/23 09:03 04/07/23 08:30 04/07/23 08:00 04/07/23 07:27 04/07/23 07:08 98 Room Air 04/07/23 03:31 98 Room Air PG Care Time/CCT Total # of Minutes Spent Total Time Spent with Patient: Total time spent is greater than 50% in coordination of care (as documented) at patient's floor/unit and/or counseling patient: Coding Level of Care Code 13737 INT INP/OBS CARE 2/55MIN Diagnoses Urinary retention R33.9 Acute UTI N39.0 Bladder diverticulum N32.3 Benign localized prostatic hyperplasia with lower urinary tract symptoms (LUTS) N40.1
--- NOTE | 2023-04-07 14:19 | Hospitalist Progress Note ---
Date of Service April 07, 2023 Assessment & Plan (1) Atrial flutter: Plan: 67 yo male with PMHx of anxiety, bladder diverticulum, BPH w/ LUTS, anemia, carotid stenosis s/p carotid endarterectomy, PAD, and HTN. #Atrial Flutter -Cardiology saw patient today: eliquis, toprol XR 25 -s/p diltiazem bolus and drip -Will continue to monitor on tele -echo unchanged from prior -cardiology consulted #UTI -Ciprofloxacin 500mg x 3 days 04/02-04/04 -Given arrhythmia and missed doses, will switch to Bactrim DS BID for full 7 days additional Urine cx grew Enterobacter, however, this could also represent contaminant. #BPH w/ LUTS #Bladder Diverticulum -follows with [facility] -cont. tamsulosin, dutasteride #Carotid stenosis s/p endarterectomy #PAD -endarterectomy Fall 2022 - needs outpatient f/u with vascular surgeon ([facility]) -cont. asa, statin #HTN -cont. amlodipine-olmesartan #Anxiety -ativan prn #HLD -cont. statin DVT ppx: SCDs FEN/GI: HH Code Status: Full Dispo: Med Tele (2) Anxiety: (3) Bladder diverticulum: (4) Benign localized prostatic hyperplasia with lower urinary tract symptoms (LUTS): (5) Anemia: (6) Carotid stenosis: (7) PAD (peripheral artery disease): (8) Hypertension: Admission and Anticipated Discharge Date Admission Date: April 05, 2023 Supervising Physician Co-Signing Physician Notes Attending attestation Pt seen and examined in concert with Dr. Gardner. In agreement with the documented findings as noted in the resident documentation with any exceptions or additions as noted here. Recurrence of palpitations c/w repeat onset of fibrillation with RVR. On examination, S1/S2 nl RRR no MCG. CTAB. Abd NT/ND BS+ve Atrial flutter/AF - cardiology consult - improved w/ diltiazem bolus and drip. Cardiology input appreciated. Continue apixaban, monitor on telemetry UTI - urology aware - continue abx therapy (ciprofloxacin) and obtain bladder scan per recommendation Else see resident documentation as noted. Subjective No acute events overnight. Early AM developed symptomatic vfib/flutter with RVR for sustained period. Denies urinary symptoms. Physical Exam Physical Exam: General: patient resting comfortably, NAD, non-toxic in appearance, answers questions appropriately and follows commands. Skin: warm, dry, intact HEENT: NC/AT, anicteric sclera, conjunctiva without injection, moist mucus membranes Heart: +S1/S2, irregular, no m/r/g Lungs: equal air entry bilaterally, no rales/rhonchi/wheezes Abd: +BS, soft, NT/ND Ext: warm, no clubbing/cyanosis or edema Neuro: nonfocal, speech intact, no facial droop, moving all extremities on command. Results & Data Results & Data Vital Signs (Past 12 Hours) Vital Signs Temp Pulse Pulse Pulse Resp BP BP 04/07/23 14:00 101/68 04/07/23 14:00 84 19 04/07/23 13:30 96 H 21 04/07/23 13:30 96/64 L 04/07/23 13:15 103 H 14 04/07/23 13:15 103/62 04/07/23 13:09 105 H 16 04/07/23 13:09 98/66 L 04/07/23 13:00 84/65 L 04/07/23 13:00 115 H 21 04/07/23 12:45 103/71 04/07/23 12:45 119 H 17 04/07/23 12:30 101/70 04/07/23 12:30 122 H 24 04/07/23 12:20 107 H 16 119/81 04/07/23 12:19 119/81 04/07/23 12:19 123 H 16 04/07/23 12:15 155 H 17 04/07/23 12:15 96/70 L 04/07/23 12:00 119/61 04/07/23 12:00 113 H 14 04/07/23 11:45 111 H 16 04/07/23 11:45 103/69 04/07/23 11:30 95/72 L 04/07/23 11:30 141 H 17 04/07/23 11:15 132 H 15 04/07/23 11:15 93/72 L 04/07/23 11:07 37.2 C 133 H 16 112/91 04/07/23 11:00 112/91 04/07/23 11:00 165 H 28 H 04/07/23 10:45 108/77 01/24/24 10:45 141 H 16 04/07/23 10:30 113 H 15 04/07/23 10:30 103/67 04/07/23 10:15 100/65 04/07/23 10:15 125 H 13 04/07/23 10:00 103/60 04/07/23 10:00 131 H 14 04/07/23 09:45 147 H 17 04/07/23 09:45 105/78 04/07/23 09:30 157 H 21 04/07/23 09:13 175 H 24 04/07/23 09:13 166/90 H 04/07/23 09:03 190 H 04/07/23 08:30 81 18 04/07/23 08:00 91 H 17 04/07/23 07:27 82 04/07/23 07:08 36.5 C 88 18 148/78 H 04/07/23 03:31 36.5 C 81 20 146/80 H Pulse Ox O2 Del Method 04/07/23 14:00 04/07/23 14:00 04/07/23 13:30 04/07/23 13:30 04/07/23 13:15 04/07/23 13:15 04/07/23 13:09 04/07/23 13:09 04/07/23 13:00 04/07/23 13:00 04/07/23 12:45 04/07/23 12:45 04/07/23 12:30 04/07/23 12:30 04/07/23 12:20 98 Room Air 04/07/23 12:19 04/07/23 12:19 04/07/23 12:15 04/07/23 12:15 04/07/23 12:00 04/07/23 12:00 04/07/23 11:45 04/07/23 11:45 04/07/23 11:30 04/07/23 11:30 04/07/23 11:15 97 04/07/23 11:15 04/07/23 11:07 96 Room Air 04/07/23 11:00 04/07/23 11:00 04/07/23 10:45 04/07/23 10:45 04/07/23 10:30 04/07/23 10:30 04/07/23 10:15 04/07/23 10:15 04/07/23 10:00 04/07/23 10:00 96 Room Air 04/07/23 09:45 95 Room Air 04/07/23 09:45 04/07/23 09:30 04/07/23 09:13 04/07/23 09:13 04/07/23 09:03 04/07/23 08:30 04/07/23 08:00 04/07/23 07:27 04/07/23 07:08 98 Room Air 04/07/23 03:31 98 Room Air
--- NOTE | 2023-04-07 17:28 | Cardiology Progress Note ---
Date of Service April 07, 2023 Assessment & Plan (1) Atrial flutter: (2) Mitral regurgitation: Plan 1. SVT: The original SVT appeared to be in atrial flutter. Review of his telemetry today suggested that started as an atrial flutter but appears have degenerated into atrial fibrillation. This leads to the question of whether an ablation for atrial flutter would provide significant long-term benefit. It is possible that by limiting the flutter would not have any additional episodes of atrial fibrillation, but this is questionable. I did discuss options with the patient and his . At this point he will continue diltiazem infusion for rate control. It is very likely he will convert spontaneously to sinus rhythm overnight. Based on his heart rates we can decide on her regimen for discharge and discuss whether catheter based therapy would be of value. He will continue systemic anticoagulation. 2. Mitral regurgitation: Mild. This can be followed over time. Admission and Anticipated Discharge Date Admission Date: April 05, 2023 Subjective This morning patient developed tachycardia. He was aware of the palpitations. Minimal activity. Did not describe associated chest pain or significant breathing difficulty. Review of Systems Review of Systems: Per HPI Physical Exam Physical Exam: The patient is alert and oriented. Mood and affect appeared normal. He answered all questions appropriately. HEENT: Pupils are equal and reactive to light and accommodation. Extraocular movements are intact. The sclerae are anicteric. Neuro: Cranial nerves intact Lungs: Normal respiratory effort. Cardiac: Heart demonstrates an irregular rhythm. Normal rate. Normal S1 and S2. No murmurs on examination. Pulses: The patient has palpable radial pulses bilaterally that are equal in intensity Extremities: There was no evidence of hypoperfusion. There is no cyanosis or clubbing. There is no edema. Skin: I did not appreciate any rashes on examination today. Results & Data Vital Signs (Past 12 Hours) Vital Signs Temp Pulse Pulse Pulse Resp BP BP 04/07/23 15:50 37.1 C 97 H 19 104/64 04/07/23 14:35 36.7 C 106 H 18 112/71 04/07/23 14:00 101/68 04/07/23 14:00 84 19 04/07/23 13:30 96 H 21 04/07/23 13:30 96/64 L 04/07/23 13:15 103 H 14 04/07/23 13:15 103/62 04/07/23 13:09 105 H 16 04/07/23 13:09 98/66 L 04/07/23 13:00 84/65 L 04/07/23 13:00 115 H 21 04/07/23 12:45 103/71 04/07/23 12:45 119 H 17 04/07/23 12:30 101/70 04/07/23 12:30 122 H 24 04/07/23 12:20 107 H 16 119/81 04/07/23 12:19 119/81 04/07/23 12:19 123 H 16 04/07/23 12:15 155 H 17 04/07/23 12:15 96/70 L 04/07/23 12:00 119/61 04/07/23 12:00 113 H 14 04/07/23 11:45 111 H 16 04/07/23 11:45 103/69 04/07/23 11:30 95/72 L 04/07/23 11:30 141 H 17 04/07/23 11:15 132 H 15 04/07/23 11:15 93/72 L 04/07/23 11:07 37.2 C 133 H 16 112/91 04/07/23 11:00 112/91 04/07/23 11:00 165 H 28 H 04/07/23 10:45 108/77 04/07/23 10:45 141 H 16 04/07/23 10:30 113 H 15 04/07/23 10:30 103/67 04/07/23 10:15 100/65 04/07/23 10:15 125 H 13 04/07/23 10:00 103/60 04/07/23 10:00 131 H 14 04/07/23 09:45 147 H 17 04/07/23 09:45 105/78 04/07/23 09:30 157 H 21 04/07/23 09:13 175 H 24 04/07/23 09:13 166/90 H 04/07/23 09:03 190 H 04/07/23 08:30 81 18 04/07/23 08:00 91 H 17 04/07/23 07:27 82 04/07/23 07:08 36.5 C 88 18 148/78 H Pulse Ox O2 Del Method 04/07/23 15:50 96 Room Air 04/07/23 14:35 98 Room Air 04/07/23 14:00 04/07/23 14:00 04/07/23 13:30 04/07/23 13:30 04/07/23 13:15 04/07/23 13:15 04/07/23 13:09 04/07/23 13:09 04/07/23 13:00 04/07/23 13:00 04/07/23 12:45 04/07/23 12:45 04/07/23 12:30 04/07/23 12:30 04/07/23 12:20 98 Room Air 04/07/23 12:19 04/07/23 12:19 04/07/23 12:15 04/07/23 12:15 04/07/23 12:00 04/07/23 12:00 04/07/23 11:45 04/07/23 11:45 04/07/23 11:30 04/07/23 11:30 04/07/23 11:15 97 04/07/23 11:15 04/07/23 11:07 96 Room Air 04/07/23 11:00 04/07/23 11:00 04/07/23 10:45 04/07/23 10:45 04/07/23 10:30 04/07/23 10:30 04/07/23 10:15 04/07/23 10:15 04/07/23 10:00 04/07/23 10:00 96 Room Air 04/07/23 09:45 95 Room Air 04/07/23 09:45 04/07/23 09:30 04/07/23 09:13 04/07/23 09:13 04/07/23 09:03 04/07/23 08:30 04/07/23 08:00 04/07/23 07:27 04/07/23 07:08 98 Room Air Laboratory Results Abnormal Lab Results 04/07/23 04:03 WBC 8.04 RBC 3.69 L Hgb 11.5 L Hct 33.7 L MCV 91.3 MCH 31.2 MCHC 34.1 RDW Std Deviation 47.1 H RDW Coeff of [place]hely 14.0 Plt Count 325 MPV 9.1 L Sodium 136 Potassium 3.7 Chloride 105 Carbon Dioxide 25 Anion Gap 6 BUN 11 Creatinine 0.77 Est Cr Clr Drug Dosing 84.3 Est GFR ( Amer) 108.8 Est GFR (Non-Af Amer) 93.9 BUN/Creatinine Ratio 14.3 Glucose 100 H Calcium 8.9 Magnesium 2.0 Total Bilirubin 0.4 AST 12 L ALT 12 Alkaline Phosphatase 45 Total Protein 7.2 Albumin 3.7 Globulin 3.5 Albumin/Globulin Ratio 1.1 PG Care Time/CCT Total # of Minutes Spent Total Time Spent with Patient: Total time spent is greater than 50% in coordination of care (as documented) at patient's floor/unit and/or counseling patient: Coding Level of Care Code 95509 SUB INP/OBS CARE 3/50MIN Diagnoses Atrial flutter I48.92 Mitral regurgitation I34.0
--- NOTE | 2023-04-07 17:47 | Electrocardiogram Report ---
Test Reason : Blood Pressure : / mmHG Vent. Rate : 149 BPM Atrial Rate : 000 BPM P-R Int : 000 ms QRS Dur : 074 ms QT Int : 242 ms P-R-T Axes : 000 -19 057 degrees QTc Int : 381 ms Atrial fibrillation with rapid ventricular response Inferior infarct (cited on or before 07-APR-2023) Abnormal ECG When compared with ECG of 05-APR-2023 15:48, Atrial fibrillation has replaced Sinus rhythm ST now depressed in Inferior leads Confirmed by Cheng Menezes ([id number]) on 04/07/2023 5:47:01 PM Referred By: Saran Song Confirmed By:Saran Menezes
[2023-04-07] MEDS: LORazepam 0.5 MG TAB PO PRN (20:54)
[2023-04-08] MEDS: LORazepam 0.5 MG TAB PO PRN ×2 (04:59→21:32)
--- NOTE | 2023-04-08 07:24 | Hospitalist Progress Note ---
Date of Service April 08, 2023 Assessment & Plan (1) Atrial flutter: (2) Anxiety: (3) Bladder diverticulum: (4) Benign localized prostatic hyperplasia with lower urinary tract symptoms (LUTS): (5) Anemia: (6) Carotid stenosis: (7) PAD (peripheral artery disease): (8) Hypertension: Plan 67 yo male with PMHx of anxiety, bladder diverticulum, BPH w/ LUTS, anemia, carotid stenosis s/p carotid endarterectomy, PAD, and HTN. #Atrial Flutter -Cardiology consulted: eliquis, continue diltiazem drip, awaiting further recommendations -s/p diltiazem bolus and drip -Will continue to monitor on tele -echo unchanged from prior -cardiology consulted #UTI - Ciprofloxacin 500mg x 3 days 04/02-04/04 - Given arrhythmia and missed doses, will switch to Bactrim DS BID for full 7 days additional - Urine cx grew Enterobacter, however, this could also represent contaminant. #BPH w/ LUTS #Bladder Diverticulum - follows with CT urology - Urology consulted: offered catheter for urinary retention, pt declined. Will follow up in clinic. - cont. tamsulosin, dutasteride #Carotid stenosis s/p endarterectomy #PAD -endarterectomy Fall 2022 - needs outpatient f/u with vascular surgeon ([facility]) -cont. asa, statin #HTN -cont. amlodipine-olmesartan #Anxiety -ativan prn #HLD -cont. statin DVT ppx: SCDs FEN/GI: HH Code Status: Full Dispo: Med Tele Admission and Anticipated Discharge Date Admission Date: April 05, 2023 Supervising Physician Co-Signing Physician Notes Attending attestation Pt seen and examined in concert with Dr. Gardner. In agreement with the documented findings as noted in the resident documentation with any exceptions or additions as noted here. Minimal symptoms despite ongoing tachycardia at time of examination. On examination, S1/S2 nl IRR no MCG. CTAB. Abd NT/ND BS+ve Atrial flutter/AF - cardiology consult - improved w/ diltiazem bolus and drip, convert based on cardiology recs, pending. Continue apixaban, monitor on telemetry UTI - urology aware - continue abx therapy (Bactrim DS). Declined gale catheter Else see resident documentation as noted. Subjective Had an episode of anxiety overnight, received PRN Ativan. Nursing paused diltiazem, restarted by overnight resident. Remains in a fib/flutter, rate controlled. This am: NAD. Labs largely unremarkable. Review of Systems Review of Systems: reviewed, per HPI Physical Exam Physical Exam: General: patient resting comfortably, NAD, non-toxic in appearance, answers questions appropriately and follows commands. Skin: warm, dry, intact HEENT: NC/AT, anicteric sclera, conjunctiva without injection, moist mucus membranes Heart: +S1/S2, irregular, no m/r/g Lungs: equal air entry bilaterally, no rales/rhonchi/wheezes Abd: +BS, soft, NT/ND Ext: warm, no clubbing/cyanosis or edema Neuro: nonfocal, speech intact, no facial droop, moving all extremities on command. Results & Data Results & Data Vital Signs (Past 12 Hours) Vital Signs Temp Pulse Pulse Resp BP Pulse Ox O2 Del Method 04/08/23 07:01 36.8 C 84 20 112/71 97 Room Air 04/08/23 06:11 87 04/08/23 06:09 115/71 04/08/23 03:03 36.6 C 61 18 113/69 97 Room Air 04/07/23 22:27 36.7 C 80 18 123/70 97 Room Air 04/07/23 22:25 92 H 04/07/23 20:41 84 127/69 04/07/23 20:03 103/61
[2023-04-08] MEDS: ASPIRIN 81 MG ECTAB PO SCH (08:08)
[2023-04-08] MEDS: APIXABAN 5 MG TABLET PO SCH ×2 (08:08→20:32)
[2023-04-08] MEDS: LOSARTAN POTASSIUM 50 MG TAB PO SCH (08:08)
[2023-04-08] MEDS: TAMSULOSIN HCL 0.4 MG CAP PO SCH (08:09)
[2023-04-08] MEDS: SULFAMETHOXAZOLE/TRIMETHOPRIM DS 800/160MG TAB PO SCH ×2 (08:09→20:32)
[2023-04-08] MEDS: ATORVASTATIN 40 MG TAB PO SCH (08:10)
[2023-04-08] MEDS: amLODIPine BESYLATE 5 MG TAB PO SCH (08:10)
[2023-04-08] MEDS: FINASTERIDE 5 MG TAB PO SCH (08:11)
[2023-04-08 10:43] LABS: Hematocrit (blood only) 36.8 % (42.0-52.0); Mean Corpuscular Hemoglobin 30.2 pg (25.0-34.0); Mean Corpuscular Hgb Conc 32.6 g/dL (32.0-36.0); Mean Corpuscular Volume 92.5 fL (80.0-100.0); Mean Platelet Volume 9.2 fL (9.4-12.4); Platelet Count 359 K/uL (130-400); RDW Standard Deviation 47.5 fL (36.4-46.3); Red Blood Count 3.98 M/uL (4.70-6.10); White Blood Count 9.98 K/ul (4.8-10.8)
[2023-04-08 11:01] LABS: BUN Creatinine Ratio 13.5 (10-20); Calcium 9.3 mg/dl (8.6-10.3); Creatinine Clr Calc Pharmacy 87.4 ml/min; Est GFR (African American) 110.6 ml/min; Est GFR (Non-African American) 95.4 ml/min; Magnesium 1.9 mg/dl (1.7-2.4); Potassium 4.1 mmol/L (3.5-5.1)
[2023-04-08] MEDS: dilTIAZem HCL 125 MG in DEXTROSE 5% 100 ML IV SCH ×2 (15:38→21:34)
--- NOTE | 2023-04-08 19:35 | Cardiology Progress Note ---
Date of Service April 08, 2023 Assessment & Plan (1) Atrial flutter: (2) Mitral regurgitation: Plan 1. Atrial fibrillation: This appears be a current arrhythmia. I am surprised he did not convert to sinus overnight. Unfortunately, there was less favorable outcome with catheter based therapy for atrial fibrillation then for atrial flutter. In the long run however this still seems to be a good option for him as both arrhythmias can be treated. He is relatively young and is likely have reasonable. Free from arrhythmia. In the short term, we will try improved rate control. If he is interested in ablation than the addition of amiodarone for short-term control may also be reasonable. 2. Mitral regurgitation: Mild. This can be followed over time. Admission and Anticipated Discharge Date Admission Date: April 05, 2023 Subjective This afternoon the patient claimed he feeling well. He is aware of his palpitations and appears to have had an episode of anxiety last night. This was also associated with a sense of tachycardia. He has been ambulatory. Minimal dizziness Review of Systems Review of Systems: Per HPI Physical Exam Physical Exam: The patient is alert and oriented. Mood and affect appeared normal. He answered all questions appropriately. HEENT: Pupils are equal and reactive to light and accommodation. Extraocular movements are intact. The sclerae are anicteric. Neuro: Cranial nerves intact Lungs: Normal respiratory effort. Cardiac: Heart demonstrates an irregular rhythm. Normal rate. Normal S1 and S2. No murmurs on examination. Pulses: The patient has palpable radial pulses bilaterally that are equal in intensity Extremities: There was no evidence of hypoperfusion. There is no cyanosis or clubbing. There is no edema. Skin: I did not appreciate any rashes on examination today. Results & Data Vital Signs (Past 12 Hours) Vital Signs Temp Pulse Pulse Resp BP Pulse Ox O2 Del Method 04/08/23 19:19 36.8 C 79 20 113/65 98 Room Air 04/08/23 15:00 79 04/08/23 14:59 36.6 C 80 17 103/61 98 Room Air 04/08/23 10:52 36.7 C 83 20 101/64 97 Room Air 04/08/23 08:16 65 Laboratory Results Abnormal Lab Results 04/08/23 10:13 WBC 9.98 RBC 3.98 L Hgb 12.0 L Hct 36.8 L MCV 92.5 MCH 30.2 MCHC 32.6 RDW Std Deviation 47.5 H RDW Coeff of [place]he[place] 14.0 Plt Count 359 MPV 9.2 L Sodium 136 Potassium 4.1 Chloride 105 Carbon Dioxide 23 Anion Gap 8 BUN 10 Creatinine 0.74 Est Cr Clr Drug Dosing 87.4 Est GFR ( Amer) 110.6 Est GFR (Non-Af Amer) 95.4 BUN/Creatinine Ratio 13.5 Glucose 83 Calcium 9.3 Magnesium 1.9 PG Care Time/CCT Total # of Minutes Spent Total Time Spent with Patient: Total time spent is greater than 50% in coordination of care (as documented) at patient's floor/unit and/or counseling patient: Coding Level of Care Code 41261 SUB INP/OBS CARE 2/35MIN Diagnoses Atrial flutter I48.92 Mitral regurgitation I34.0
[2023-04-08] MEDS: dilTIAZem HCL 30 MG TAB PO SCH (20:31)
[2023-04-09] MEDS: LORazepam 0.5 MG TAB PO PRN (04:43)
[2023-04-09] MEDS: APIXABAN 5 MG TABLET PO SCH (08:11)
[2023-04-09] MEDS: TAMSULOSIN HCL 0.4 MG CAP PO SCH (08:12)
[2023-04-09] MEDS: ASPIRIN 81 MG ECTAB PO SCH (08:12)
[2023-04-09] MEDS: FINASTERIDE 5 MG TAB PO SCH (08:13)
[2023-04-09] MEDS: SULFAMETHOXAZOLE/TRIMETHOPRIM DS 800/160MG TAB PO SCH (08:14)
[2023-04-09] MEDS: dilTIAZem HCL 30 MG TAB PO SCH ×2 (08:14→14:03)
[2023-04-09] MEDS: ATORVASTATIN 40 MG TAB PO SCH (08:15)
[2023-04-09] MEDS: LOSARTAN POTASSIUM 50 MG TAB PO SCH (08:15)
--- NOTE | 2023-04-09 13:21 | Cardiology Progress Note ---
Date of Service April 09, 2023 Assessment & Plan (1) Atrial flutter: (2) Mitral regurgitation: Plan 1. Atrial fibrillation: He seems a cycle between atrial fibrillation and atrial flutter. Rates are generally higher with atrial flutter. He was transitioned to some oral diltiazem last evening. Blood pressure and heart rate seem reasonable now that he is back in sinus rhythm. I think he could be discharged on diltiazem 180 mg daily. He should stop his amlodipine and he can use olmesartan as a separate prescription if his blood pressure remains elevated. We discussed many options for treatment of the atrial arrhythmias. Hopefully he will feel better with improved rate control when he has additional episodes. However, for frequent and symptomatic episodes he could be started on antiarrhythmic therapy as well. Appears to be a reasonable candidate for flecainide, dronedarone or amiodarone. He would also be a good candidate for dofetilide or sotalol but these require inpatient administration. We discussed exploring the option of catheter based therapy for treatment of both atrial flutter and atrial fibrillation. Given his young age and favorable echo characteristics, would likely have a good outcome. 2. Mitral regurgitation: Mild. This can be followed over time. I think he would be safe for discharge today. He should continue Eliquis, diltiazem 180 mg daily, discontinue amlodipine and I will prepare a referral to [facility] for evaluation ablation. Admission and Anticipated Discharge Date Admission Date: April 05, 2023 Subjective This morning patient claims to be feeling well. He stated that over the course of the evening he was feeling some palpitations. He has been ambulatory. No dizziness or lightheadedness. Review of Systems Review of Systems: Per HPI Physical Exam Physical Exam: The patient is alert and oriented. Mood and affect appeared normal. He answered all questions appropriately. HEENT: Pupils are equal and reactive to light and accommodation. Extraocular movements are intact. The sclerae are anicteric. Neuro: Cranial nerves intact Lungs: Normal respiratory effort. Cardiac: Heart demonstrates a regular rhythm. Normal rate. Normal S1 and S2. No murmurs on examination. Pulses: The patient has palpable radial pulses bilaterally that are equal in intensity Extremities: There was no evidence of hypoperfusion. There is no cyanosis or clubbing. There is no edema. Skin: I did not appreciate any rashes on examination today. Results & Data Vital Signs (Past 12 Hours) Vital Signs Temp Pulse Pulse Pulse Resp BP Pulse Ox 04/09/23 11:35 36.7 C 71 19 99/61 L 97 04/09/23 07:37 72 04/09/23 07:05 36.6 C 130 H 19 103/70 97 04/09/23 07:00 87 04/09/23 02:33 36.4 C L 87 18 104/69 98 O2 Del Method 04/09/23 11:35 Room Air 04/09/23 07:37 04/09/23 07:05 Room Air 04/09/23 07:00 04/09/23 02:33 Room Air PG Care Time/CCT Total # of Minutes Spent Total Time Spent with Patient: Total time spent is greater than 50% in coordination of care (as documented) at patient's floor/unit and/or counseling patient: Coding Level of Care Code 82805 SUB INP/OBS CARE 2/35MIN Diagnoses Atrial flutter I48.92 Mitral regurgitation I34.0
--- NOTE | 2023-04-09 17:32 | Discharge Summary ---
Date of Service April 09, 2023 Admission HPI Per Admitting Provider 67 yo male with PMHx of anxiety, bladder diverticulum, BPH w/ LUTS, anemia, carotid stenosis s/p carotid endarterectomy, PAD, and HTN. Patient states that ever since his carotid enterectomy and fall 2022 he has felt intermittently unwell. He will have sporadic episodes of feeling lightheaded and extremely anxious. More recently few days ago his symptoms were so bad he felt like he was about to pass out and presented to [facility] for evaluation. Per reports upon EMS evaluation patient was in A-fib/a flutter. In the ED he was given a liter bolus and Ativan with resolution of his symptoms and was discharged home on a short course of ciprofloxacin given his urinary history. Earlier today patient was experiencing similar symptoms and per his urologist was recommended to present back to the hospital for further evaluation. Did initially present again in A-fib/a flutter with sudden resolution. Denies fevers, chills, headache, chest pain, shortness of breath, abdominal pain, nausea, vomiting, constipation, diarrhea, dysuria. He has been urinating normally without any gross hematuria. Admission Exam Per Admitting Provider Constitutional: in no acute distress, pleasant and normal affect, intact memory. AOx3. Vitals as above. HEENT: No scleral injection or discharge. Moist mucous membranes. Neck: Supple without lymphadenopathy or thyromegaly. Trachea midline. Lungs: Clear to auscultation bilaterally with good effort. No wheezes/rales/rhonchi. Cardiac: Regular rate and rhythm. No murmurs. No lower extremity edema. 2+ distal peripheral pulses. Abdomen: Bowel sounds present. Soft, nontender, and nondistended.No guarding. No hepatosplenomegaly. MSK: No cyanosis or clubbing. Extremities motor strength 5/5. Skin: No rashes, warm, dry. Neurologic: no focal deficits Principal Diagnosis atrial fibrillation/flutter, UTI Discharge Exam General: patient resting comfortably, NAD, non-toxic in appearance, answers questions appropriately and follows commands. Skin: warm, dry, intact HEENT: NC/AT, anicteric sclera, conjunctiva without injection, moist mucus membranes Heart: +S1/S2, rrr, no m/r/g Lungs: equal air entry bilaterally, no rales/rhonchi/wheezes Abd: +BS, soft, NT/ND Ext: warm, no clubbing/cyanosis or edema Neuro: nonfocal, speech intact, no facial droop, moving all extremities on command. Discharge Data Allergies Allergy/AdvReac Type Severity Reaction Status Date / Time No Known Allergies Allergy Verified 04/05/23 17:15 Consultations 04/05/23 17:50 ED Decision to Admit Stat 04/05/23 19:12 Consult Cardiology Routine 04/07/23 09:46 Consult Urology Routine Ordered Studies 04/05/23 16:27 CT angio chest PE protocol Stat Hospital Course (1) Atrial flutter: (2) Anxiety: (3) Bladder diverticulum: (4) Benign localized prostatic hyperplasia with lower urinary tract symptoms (LUTS): (5) Anemia: (6) Carotid stenosis: (7) PAD (peripheral artery disease): (8) Hypertension: Plan 67 yo male with PMHx of anxiety, bladder diverticulum, BPH w/ LUTS, anemia, carotid stenosis s/p carotid endarterectomy, PAD, and HTN. #Atrial Flutter -Cardiology consulted: eliquis 5mg BID, diltiazem XR 180mg daily -Stop amlodipine, olmesartan prescribed as solo dose at 20mg daily; instructions to hold for BP<100/60 -s/p diltiazem bolus and drip -Will continue to monitor on tele -echo unchanged from prior -cardiology consulted #UTI - Ciprofloxacin 500mg x 3 days 04/02-04/04 - Given arrhythmia and missed doses, will switch to Bactrim DS BID for full 7 days additional - At discharge script sent for 9 additional doses of Bactrim DS - Urine cx grew Enterobacter, however, this could also represent contaminant. #BPH w/ LUTS #Bladder Diverticulum - follows with [facility] - Urology consulted: offered catheter for urinary retention, pt declined. Will follow up in clinic. - cont. tamsulosin, dutasteride #Carotid stenosis s/p endarterectomy #PAD -endarterectomy Fall 2022 - needs outpatient f/u with vascular surgeon (C) -cont. asa, statin #HTN see above adjustment #Anxiety -ativan prn #HLD -cont. statin Total Time Total Time Spent Total Time Spent (In Minutes): I spent 30 minutes seeing the patient, reviewing records, and documenting Discharge Plan Discharge Items Patient Disposition: Home - Self-Care Reason For Visit: ATRIAL FLUTTER Discharge Diagnosis: Atrial fibrillation Activity: Resume your previous activity Activity Comment: as tolerated Non-emergency contact: Primary Care Provider and Legal Financial Specialist Call non-emergency contact if: you have any medication questions and your symptoms worsen Follow-up/Referrals: Keon Whitley MD [Primary Care Provider] - 04/16/23 10:00 am (PCP follow up: 04/16/23 @ 10 am with Leny LARA) Cheng Menezes MD [Physician] - 04/14/23 1:00 pm (Cardio follow up: 04/14/23 @ 1 pm with Jeri LARA) Diet: Heart Healthy Addtl Attending Provider Instructions: You were admitted to the hospital for atrial flutter which later converted to atrial fibrillation. You were treated with a blood thinner (Eliquis) to prevent stroke and diltiazem (Cardizem) to control the rate at which your heart was beating. During your stay you converted back to sinus rhythm. You were also evaluated for and treated with antibiotics for a urinary tract infection. You were evaluated by urology while you were inpatient, they will see you at your regularly scheduled visit next week. A discharge summary will be sent to your primary care physician to ensure continuity of care. Please bring this discharge summary with you to your next office appointment so that your provider can review it at that time. Follow-up appointments: Make a follow-up appointment with your PCP within the next week. It is very important that you follow up with them shortly after discharge from the hospital. Keep all your follow-up appointments as already scheduled. If you cannot make an appointment, notify your provider. Medications: Your medication list has been reviewed and reconciled upon discharge to ensure accuracy and continuity of care. An updated list of all your medications is included with your hospital discharge paperwork. Please review this list closely, and make note of any changes. We sent a new medication called diltiazem to your pharmacy. Take diltiazem (180mg) one tablet daily. We sent a new medication called Eliquis to your pharmacy. Take Eliquis (5mg) one tablet twice daily. We sent a new medication called trimethoprim-sulfamethoxazole (Bactrim DS) to your pharmacy. Take Bactrim DS twice daily for a total of 9 more doses. We sent a new medication called lorazepam to your pharmacy. Take lorazepam (0.5mg) one tablet as needed for anxiety. We sent a new medication called olmesartan to your pharmacy. Take olmesartan (20mg) one table daily. PLEASE NOTE You will STOP taking your combination amlodipine-olmesartan and take only olmesartan after discharge. If you monitor your blood pressure and find that it is lower than 100/60, STOP taking the olmesartan, as well. If you have any issues filling these prescriptions, please call [phone] and ask to leave a message for Dr. Naeem Gardner. Take your medications as instructed; do not skip a dose of your medicines. Make sure all of your doctors know every medicine you are taking (including kpgl-gak-ptxbsam medicines, vitamins, and supplements). Call your primary care provider before taking any new medicines (including cgix-ska-xhmrhej medicines, vitamins, and supplements), because some of these may interact with your current medications, or may make your symptoms worse. Tell your primary care provider if you cannot afford your medications. CONTACT YOUR PRIMARY CARE PROVIDER if you experience any of the following: Difficulty following your treatment plan, or difficulty taking medications CALL 911 OR GO TO THE EMERGENCY DEPARTMENT if you experience any of the following: Sudden, severe abdominal pain or nausea/vomiting Severe chest pain, or chest pain that radiates (moves) to your jaw or arm Sudden, severe shortness of breath or difficulty breathing Thank you for allowing us to participate in your care. Pending Studies at Discharge: No Stand-Alone Forms: My [facility] Medications and DC Order Prescriptions: New Eliquis 5 mg tablet 5 mg PO BID 30 Days Qty: 60 0RF sulfamethoxazole-trimethoprim [Bactrim DS] 800-160 mg Tablet 1 tab PO Q12H Qty: 9 0RF olmesartan 20 mg tablet 20 mg PO DAILY Qty: 30 0RF diltiazem HCl [DILT-XR] 180 mg capsule,ext.rel 24h degradable 180 mg PO DAILY Qty: 30 0RF lorazepam 0.5 mg tablet 0.5 mg PO HS Qty: 7 0RF Continued tamsulosin 0.4 mg capsule 0.4 mg PO DAILY Qty: 30 2RF cholecalciferol (vitamin D3) 25 mcg (1,000 unit) capsule 25 mcg PO DAILY ascorbic acid (vitamin C) 1,000 mg capsule 1 g PO DAILY aspirin [Adult Low Dose Aspirin] 81 mg tablet,delayed release (DR/EC) 81 mg PO DAILY Qty: 30 11RF atorvastatin 40 mg tablet 40 mg PO DAILY Qty: 30 6RF dutasteride 0.5 mg capsule 0.5 mg PO DAILY Qty: 90 3RF multivitamin Tablet 1 tab PO QAM lorazepam [Ativan] 0.5 mg tablet 0.5 mg PO Q8H PRN (Reason: anxiety) Qty: 11 0RF Discontinued amlodipine-olmesartan 5-20 mg tablet 1 tab PO DAILY Qty: 90 3RF ciprofloxacin HCl 500 mg tablet 500 mg PO BID Qty: 6 0RF Discharge Orders: Discharge Order (Routine); Ordered 04/09/23 Ordered By: Naeem Gardner Admission Data Admit Date/Time: 04/05/23 19:12 Attending Provider: Rigo Quinn Admit Provider: Joshua Salguero Primary Care Provider: Keon Whitley Other Providers: Yonny Garcia; Nitin Storey; Mirza Leger; Yogi Ham; Cheng Song; Alma Palomo; Zhang Kilpatrick; Anais Perry; Linda Marte; Bryce Rogers; Genoveva Perez; Lon Miles; Hiram Griffin Other Interventions: Discharge Summary Assessment (RN) Last Done: 04/09/23 15:36 Supervising Physician Co-Signing Physician Notes I also saw the patient confirmed blackmon portions of the clinical history and physical examination. I agree with the impression and plan as noted in the resident discharge summary above. Upon our late morning exam, the patient was seated in bed. His is at bedside; he has no complaints. He had returned to normal sinus rhythm around 7 AM today. Cardiology had seen the patient just before our exam and reviewed the plan moving forward. Apixaban 5 mg p.o. twice daily Diltiazem XR 180 mg daily Discontinue amlodipine Olmesartan 20 mg daily Discussed monitoring blood pressure at home; discussed target blood pressures; with addition of diltiazem may need to hold olmesartan. We talked about conservative measures to prevent orthostatic hypotension; discussed gradually rising from a seated position, and being very careful with regards to getting up to use the bathroom at night. [place] [facility] [place]. He will follow-up with urology as an outpatient with regards to his urinary retention Completed course of Bactrim for his UTI
--- NOTE | 2023-04-09 17:33 | Electrocardiogram Report ---
Test Reason : Blood Pressure : / mmHG Vent. Rate : 095 BPM Atrial Rate : 095 BPM P-R Int : 170 ms QRS Dur : 070 ms QT Int : 322 ms P-R-T Axes : 075 000 053 degrees QTc Int : 404 ms Normal sinus rhythm Normal ECG When compared with ECG of 07-APR-2023 09:31, Sinus rhythm has replaced Atrial fibrillation Vent. rate has decreased BY 54 BPM Criteria for Inferior infarct are no longer Present ST no longer depressed in Inferior leads Confirmed by Cheng Menezes ([id number]) on 04/09/2023 5:32:57 PM Referred By: Saran Song Confirmed By:Saran Menezes
== END 2023-04-09 16:28 | disposition home or self-care (01) | DRG 309 ==
LOC: ED 15:40 → SUATTDRO 19:12 → EDINP 19:12 → 4W 04-07 15:42